=== PATIENT | female | born 1940 | race Caucasian/White ===

== ENCOUNTER 2018-04-23 03:09 | Inpatient (IN) | payer MEDICARE ==
[2018-04-23] VITALS (8 sets, daily range): BP systolic 131–147; BP diastolic 60–98; PULSE 73–92; RESP 15–20; TEMP 97.2–98.1; O2SAT 94–98
[~2018-04-23] VITALS: Ht 170.2 cm; Wt 93.0 kg
[2018-04-23] MEDS ORDERED: GLIP5TAB8 PO (03:24)
[2018-04-23] MEDS ORDERED: METF500T PO (03:24)
[2018-04-23] MEDS ORDERED: COUM1TAB PO (03:24)
[2018-04-23] MEDS ORDERED: COUM4TAB PO (03:24)
[2018-04-23] MEDS ORDERED: SYNT88TA PO (03:24)
[2018-04-23] MEDS ORDERED: METO50TA PO (03:24)
[2018-04-23] MEDS ORDERED: ATOR10TA15 PO (03:25)
[2018-04-23] MEDS ORDERED: POTA8CAP PO (03:26)
[2018-04-23] MEDS ORDERED: FURO20TA PO (03:26)
[2018-04-23] MEDS ORDERED: NITROGLYCERIN 2% OINT 1 GM PACKET TOPICAL ONE (03:45)
[2018-04-23] MEDS ORDERED: FUROSEMIDE 100 MG/10 ML VIAL IVP ONE (03:45)
--- NOTE | 2018-04-23 03:47 | PD ---
HPI Chief Complaint: Respiratory Symptoms Time Seen by Provider: 03:40 Travel History International Travel<30 days: No Contact w/Intl Traveler<30days: No Traveled to known affect area: No History of Present Illness HPI Patient comes in complaining of progressively worsening shortness of breath over the last 3 days, not associated with any cough fever or runny nose or sore throat. However the patient has no some noted pitting edema to her lower extremities as well as worsening shortness of breath with laying flat on her back or with activity PCP IS DR TONY HILLS Residential Monitor is Dr. ALONSO States allergy to codeine Past medical history significant for congestive heart failure, ablation, valve replacement, CABG, hypercholesteremia, atrial fibrillation, hypertension, diabetes, PFSH Past Medical History Atrial Fibrillation: Yes Cancer: Yes (BREAST RT SIDE) High Cholesterol: Yes Congestive Heart Failure: Yes Diabetes: Yes Patient Takes Glucophage: Yes (04/21/18) Hypertension: Yes Past Surgical History Cardiac Surgery: Yes (ABLATION, VALVE REPLACEMENT) Coronary Artery Bypass Graft: Yes Other Surgery: Yes (LUMPECTOMY RT SIDE) Social History Alcohol Use: No Tobacco Use: No Substance Use: No Allergies-Medications (Allergen,Severity, Reaction): Coded Allergies: codeine (Verified Allergy, Unknown, 04/23/18) Reported Meds & Prescriptions Reported Meds & Active Scripts Active Reported Potassium Chloride ER (Potassium Chloride) 8 Meq Cap 8 Meq PO DAILY Furosemide 20 Mg Tab 20 Mg PO DAILY Atorvastatin (Atorvastatin Calcium) 10 Mg Tab 10 Mg PO HS Metoprolol Tartrate 50 Mg Tab 50 Mg PO DAILY Coumadin (Warfarin) 4 Mg Tab 4 Mg PO DAILY Synthroid (Levothyroxine Sodium) 88 Mcg Tab 88 Mcg PO DAILY Glipizide 5 Mg Tab 5 Mg PO DAILY Take 30 minutes before a meal Metformin (Metformin HCl) 500 Mg Tab 500 Mg PO BIDPC Review of Systems General / Constitutional: No: Fever Eyes: No: Visual changes HENT: No: Headaches Cardiovascular: Positive: Palpitations, Irregular Rhythm Respiratory: Positive: Shortness of Breath, Orthopnea Gastrointestinal: No: Abdominal Pain Genitourinary: No: Dysuria Musculoskeletal: No: Pain Skin: No Rash Neurologic: No: Weakness Psychiatric: No: Depression Endocrine: No: Polydipsia Hematologic/Lymphatic: No: Easy Bruising Physical Exam Narrative GENERAL: SKIN: Warm and dry. HEAD: Atraumatic. Normocephalic. EYES: Pupils equal and round. No scleral icterus. No injection or drainage. ENT: No nasal bleeding or discharge. Mucous membranes pink and moist. NECK: Trachea midline. No JVD. CARDIOVASCULAR: IRREGULARLY IRREGULAR RHYTHM, NORMAL RATE RESPIRATORY: No accessory muscle use. BIBASILAR CRACKLES GASTROINTESTINAL: Abdomen soft, non-tender, nondistended. Hepatic and splenic margins not palpable. MUSCULOSKELETAL: Extremities without clubbing, cyanosis, 3+ PITTING BLE edema. No obvious deformities. NEUROLOGICAL: Awake and alert. No obvious cranial nerve deficits. Motor grossly within normal limits. Five out of 5 muscle strength in the arms and legs. Normal speech. PSYCHIATRIC: Appropriate mood and affect; insight and judgment normal. Data Data Last Documented VS Vital Signs Date Time Temp Pulse Resp B/P (MAP) Pulse Ox O2 Delivery O2 Flow Rate FiO2 04/23/18 03:26 98.1 92 18 132/96 (108) 97 Room Air 04/23/18 03:15 2.00 Orders Orders Complete Blood Count With Diff (04/23/18 03:40) Comprehensive Metabolic Panel (04/23/18 03:40) B-Type Natriuretic Peptide (04/23/18 03:40) Act Partial Throm Time (Ptt) (04/23/18 03:40) Prothrombin Time / Inr (Pt) (04/23/18 03:40) Ckmb (Isoenzyme) Profile (04/23/18 03:40) Troponin I (04/23/18 03:40) Iv Access Insert/Monitor (04/23/18 03:40) Electrocardiogram (04/23/18 03:40) Ecg Monitoring (04/23/18 03:40) Oximetry (04/23/18 03:40) Chest, Single Ap (04/23/18 03:40) Furosemide Inj (Lasix Inj) (04/23/18 03:45) Nitroglycerin 2% Oint (Nitroglycerin 2% (04/23/18 03:45) Labs Laboratory Tests Test 04/23/18 03:48 White Blood Count 6.7 TH/MM3 Red Blood Count 3.52 MIL/MM3 Hemoglobin 10.5 GM/DL Hematocrit 31.2 % Mean Corpuscular Volume 88.6 FL Mean Corpuscular Hemoglobin 29.7 PG Mean Corpuscular Hemoglobin Concent 33.5 % Red Cell Distribution Width 17.1 % Platelet Count 272 TH/MM3 Mean Platelet Volume 8.4 FL Neutrophils (%) (Auto) 62.6 % Lymphocytes (%) (Auto) 22.7 % Monocytes (%) (Auto) 10.6 % Eosinophils (%) (Auto) 3.3 % Basophils (%) (Auto) 0.8 % Neutrophils # (Auto) 4.2 TH/MM3 Lymphocytes # (Auto) 1.5 TH/MM3 Monocytes # (Auto) 0.7 TH/MM3 Eosinophils # (Auto) 0.2 TH/MM3 Basophils # (Auto) 0.1 TH/MM3 CBC Comment DIFF FINAL Differential Comment Prothrombin Time 17.5 SEC Prothromb Time International Ratio 1.7 RATIO Activated Partial Thromboplast Time 26.6 SEC Blood Urea Nitrogen 37 MG/DL Creatinine 1.90 MG/DL Random Glucose 188 MG/DL Total Protein 7.1 GM/DL Albumin 3.1 GM/DL Calcium Level 8.6 MG/DL Alkaline Phosphatase 158 U/L Aspartate Amino Transf (AST/SGOT) 40 U/L Alanine Aminotransferase (ALT/SGPT) 36 U/L Total Bilirubin 0.5 MG/DL Sodium Level 140 MEQ/L Potassium Level 4.5 MEQ/L Chloride Level 109 MEQ/L Carbon Dioxide Level 22.7 MEQ/L Anion Gap 8 MEQ/L Estimat Glomerular Filtration Rate 26 ML/MIN Total Creatine Kinase 54 U/L Troponin I LESS THAN 0.02 NG/ML B-Type Natriuretic Peptide 429 PG/ML MDM Medical Decision Making Medical Screen Exam Complete: Yes Emergency Medical Condition: Yes Medical Record Reviewed: Yes Interpretation(s) EKG shows atrial fibrillation with PVCs, around 90 bpm, LVH, no evidence of any ST elevation MN pattern, nonspecific T-wave abnormalities, negative SGARBOSSA'S criteria Differential Diagnosis Pneumonia versus CHF versus pleural effusion versus STEMI versus non-STEMI Narrative Course CBC shows no leukocytosis, no left shift, mild anemia of 10/31, and platelet counts were within normal limits Patient is adequately anticoagulated with an INR 1.7 Patient's electrolytes are within normal limits with the exception of GFR of 26 creatinine 1.9 and a glucose of 188. Beta natruretic peptide is 429 which is elevated consistent with CHF, first set of cardiac enzymes is negative Chest x-ray read by radiologist as mild consolidation and small pleural effusion at the left lung base Diagnosis Primary Impression: CHF exacerbation Additional Impression: Rule out pneumonia left lower lobe Admitting Information Admitting Physician Requests: Observation Danie Chamberlain MD April 23, 2018 03:47
[2018-04-23 04:14] LABS: AUTOMATED NEUTROPHIL # 4.2 TH/MM3 (1.8-7.7); BASOPHIL # 0.1 TH/MM3 (0-0.2); BASOPHIL % 0.8 % (0.0-2.0); EOSINOPHIL # 0.2 TH/MM3 (0-0.4); EOSINOPHIL % 3.3 % (0.0-4.0); HEMATOCRIT 31.2 % (35.0-46.0); HEMOGLOBIN 10.5 GM/DL (11.6-15.3); LYMPH % 22.7 % (9.0-44.0); LYMPHOCYTE # 1.5 TH/MM3 (1.0-4.8); MEAN CELL VOLUME 88.6 FL (80.0-100.0); MEAN CORPUSCULAR HEMOGLOBIN 29.7 PG (27.0-34.0); MEAN CORPUSCULAR HGB CONC 33.5 % (32.0-36.0); MEAN PLATELET VOLUME 8.4 FL (7.0-11.0); MONO % 10.6 % (0.0-8.0); MONOCYTE # 0.7 TH/MM3 (0-0.9); NEUT % 62.6 % (16.0-70.0); PLATELET COUNT 272 TH/MM3 (150-450); RED BLOOD COUNT 3.52 MIL/MM3 (4.00-5.30); RED CELL DISTRIBUTION WIDTH 17.1 % (11.6-17.2); WHITE BLOOD COUNT 6.7 TH/MM3 (4.0-11.0)
[2018-04-23 04:24] LABS: ALT (GPT) 36 U/L (10-53)
[2018-04-23 04:29] LABS: ALBUMIN 3.1 GM/DL (3.4-5.0); ALKALINE PHOSPHATASE 158 U/L (45-117); AST (GOT) 40 U/L (15-37); BICARBONATE 22.7 MEQ/L (21.0-32.0); BLOOD UREA NITROGEN 37 MG/DL (7-18); CALCIUM 8.6 MG/DL (8.5-10.1); CHLORIDE 109 MEQ/L (98-107); GLOMERULAR FILTRATION RATE 26 ML/MIN (>89); GLUCOSE,RANDOM 188 MG/DL (74-106); SODIUM (NA) 140 MEQ/L (136-145); TOTAL BILIRUBIN ADULT 0.5 MG/DL (0.2-1.0); TOTAL PROTEIN 7.1 GM/DL (6.4-8.2); TROPONIN I LESS THAN 0.02 NG/ML (0.02-0.05)
--- NOTE | 2018-04-23 04:31 | RADRPT ---
EXAM DATE: 04/23/2018 4:23 AM EDT AGE/SEX: 77 years / Female INDICATIONS: Chest pain and shortness of breath. CLINICAL DATA: This is the patient's initial encounter. Patient reports that signs and symptoms have been present for 2 weeks and indicates a pain score of 3/10. MEDICAL/SURGICAL HISTORY: Congestive heart failure. CABG. COMPARISON: No prior [facility] exams available for comparison. FINDINGS: There is left base consolidation and probably a small left pleural effusion. Right lung reasonably cl ear. No pneumothorax demonstrated. Heart size within normal limits. There has been previous median sternotomy and valve replacement. CONCLUSION: Mild consolidation and small pleural effusion at the left lung base. Electronically signed by: Ceferino Millan MD 04/23/2018 4:29 AM EDT
[2018-04-23 04:41] LABS: INTERNATIONAL NORMALIZED RATIO 1.7 RATIO; PROTHROMBIN TIME - PATIENT 17.5 SEC (9.8-11.6)
[2018-04-23] MEDS ORDERED: cefTRIAXone INJ 1,000 MG in SODIUM CHLORIDE 0.9% INJ 100 ML IV ONE (05:15)
[2018-04-23] MEDS ORDERED: AZITHROMYCIN INJ 500 MG in SODIUM CHLOR 0.9% 250 ML INJ 250 ML IV ONE (05:15)
[2018-04-23] MEDS ORDERED: SODIUM CHLORIDE 0.9% FLUSH 10 ML FLUSH IV FLUSH PRN (05:30)
[2018-04-23] MEDS ORDERED: METOCLOPRAMIDE HCL 10 MG/2 ML VIAL IV PUSH PRN (05:30)
[2018-04-23] MEDS ORDERED: DEXTROSE 50% IN WATER 50 ML VIAL(D50) IV PUSH PRN (05:30)
[2018-04-23] MEDS ORDERED: BISACODYL 10 MG SUPP RECTAL PRN (05:30)
[2018-04-23] MEDS ORDERED: SENNOSIDES 8.6 MG TAB PO PRN (05:30)
[2018-04-23] MEDS ORDERED: GLUCAGON 1 MG/ML VIAL OTHER PRN (05:30)
[2018-04-23] MEDS ORDERED: ACETAMINOPHEN 325 MG TAB PO PRN (05:30)
[2018-04-23] MEDS ORDERED: MAGNESIUM HYDROXIDE SUSP 30 ML CUP PO PRN (05:30)
[2018-04-23] MEDS ORDERED: MORPHINE SULFATE 2 MG/ML SYRINGE IV PUSH PRN (05:30)
[2018-04-23] MEDS ORDERED: LACTULOSE SYRUP 20 GM/30 ML CUP PO PRN (05:30)
[2018-04-23] MEDS: METOPROLOL TARTRATE 50 MG TAB PO SCH (08:30)
[2018-04-23] MEDS: FUROSEMIDE 40 MG/4 ML VIAL IV PUSH SCH ×2 (08:31→16:17)
[2018-04-23] MEDS: DOCUSATE SODIUM 50 MG/SENNA 8.6 MG TAB PO SCH ×2 (08:31→21:00)
[2018-04-23] MEDS: SODIUM CHLORIDE 0.9% FLUSH 10 ML FLUSH IV FLUSH SCH (08:32)
[2018-04-23] MEDS: INSULIN ASPART SUPPLEMENTAL SCALE SQ SCH ×4 (08:33→21:36)
[2018-04-23] MEDS: WARFARIN SOD 4 MG TAB PO SCH ×2 (08:40→16:17)
--- NOTE | 2018-04-23 09:56 | MB ---
cc: Devang Hastings MD DATE: 04/23/2018 DATE OF CONSULTATION: 04/23/2018. SECONDS GRADER: Dr. Christopher. ATTENDING PHYSICIAN: Dr. Romero Villafana. HISTORY OF PRESENT ILLNESS: I was asked to evaluate patient with congestive heart failure. Maddy Ford is a pleasant 77-year-old woman with a past medical history significant for status post recent mitral valve repair, coronary stent placement and "hole in the heart" repair 10/20/2017 in [place], [place]. She returned from [facility] this past Tuesday. Since returning to [place], she has noted progressive increasing shortness of breath and lower extremity edema. She was not able to lie flat before having paroxysms of shortness of breath. She denies chest pain. Emergency room evaluation shows congestive heart failure. Chest x-ray shows cardiomegaly with left pleural effusion and CHF. PERTINENT LABORATORY DATA: Potassium 4.5, creatinine is 1.9. Troponin less than 0.01. BNP is 429. MEDICATIONS PRIOR TO ADMISSION: 1. Potassium 8 mEq daily. 2. Lasix 20 mg daily. 3. Atorvastatin 10 mg daily. 4. Metoprolol tartrate 50 mg daily. 5. Warfarin 4 mg daily. 6. Synthroid 88 mcg daily. 7. Glipizide 5 mg daily. 8. Metformin 500 mg bid. ALLERGIES: CODEINE. PAST MEDICAL HISTORY: As above. She has a history of atrial fibrillation, status post ablation. Status post recent mitral valve ring, coronary stent and a "hole in the heart" repair 10/20/2017. Additionally, She has history of hypercholesterolemia, hypothyroidism, diabetes mellitus. PAST SURGICAL HISTORY: As above, also status post right lumpectomy. REVIEW OF SYSTEMS: As above. A 12-point review of systems reviewed and noted. She has noted progressive lower extremity swelling, edema with increased erythema, shortness of breath with orthopnea and paroxysmal nocturnal dyspnea. PHYSICAL EXAMINATION: VITAL SIGNS: Temperature 98.1, pulse 92, blood pressure 132/96, O2 saturation 97% on 2 liters nasal cannula. GENERAL: Very pleasant, in no acute distress. HEENT: Anicteric. PERRLA. NECK: Increased JVD. Soft carotid bruits. LUNGS: With bibasilar crackles. Decreased breath sounds at the left base. HEART: Irregular rate and rhythm, 2/6 systolic murmur, left lower sternal border. ABDOMEN: Soft and nontender. EXTREMITIES: Have 3+ pitting edema up to the knees with increased erythema. LABORATORY DATA: Sodium 140, potassium 4.5, BUN 37, creatinine 1.9, calcium 8.6, troponin less than 0.02. BNP is 429, albumin is 3.1. WBC 6.7, hemoglobin is 10.5, hematocrit is 31.2, platelet count is 272,000. IMPRESSION: 1. Congestive heart failure. 2. Status post recent mitral valve ring, coronary stent and probable ASD repair in [place], [place] 10/20/2017. 3. History of atrial fibrillation, status post ablation. 4. Chronic renal insufficiency, acute renal failure. 5. Hypertension. 6. Hypercholesterolemia. 7. Diabetes mellitus. PLAN: 1. Continue IV Lasix diuresis as systolic blood pressure and creatinine tolerate. 2. Atorvastatin, warfarin has been continued. 3. Schedule echocardiogram. 4. Consider discontinuing metformin due to congestive heart failure. 5. Not able to start JEWELS inhibitors due to acute and chronic renal insufficiency. 6. Start Carvedilol 3.125 mg b.i.d. Thank you for allowing me to contribute to the patient's care. Thank you for this consultation. Devang Hastings MD NLV/TL , 09:31 AM , 09:54 AM
--- NOTE | 2018-04-23 13:17 | EKG ---
Date Performed: 04/23/2018 Time Performed: 03:20:44 PTAGE: 77 years EKG: ATRIAL FIBRILLATION WITH ABERRANT CONDUCTION OR VENTRICULAR PREMATURE COMPLEXES MARKED LEFT AXIS DEVIATION MODERATE VOLTAGE CRITERIA FOR LVH, CONSIDER NORMAL VARIANT NONSPECIFIC T-WAVE ABNORMA LITY ABNORMAL ECG Compared to PREVIOUS TRACING , there is a rhythm change from Sinus rhythm to atrial fibrillation. Blair somewhat more leftward. QRS voltage is greater. T-wave changes are new. PREVIOUS TRACIN09/28/2007 06.11 DOCTOR: Milton Mcghee Interpretating Date/Time 04/23/2018 13:16:44
--- NOTE | 2018-04-23 15:23 | HHI.HP ---
[facility] Dax Zamora MD Admission Diagnosis CHF EXACERBATION, DEBILITY Diagnoses: (1) CHF exacerbation (2) PAULINA (acute kidney injury) Chief Complaint: Dyspnea Travel History International Travel<30 Days: No Contact w/Intl Traveler <30 Da: No Traveled to Known Affected Are: No History of Present Illness 77-year-old female with a history of atrial fibrillation, CHF, CAD, type 2 diabetes presented to the ER overnight complaining of difficulty breathing. Her shortness of breath was worse with activity and while laying down to sleep. She denied any chest pain at the time. ER workup revealed elevated BNP and exam revealed evidence for fluid overload. She incidentally also had elevated creatinine level indicating renal impairment. Laboratory testing overnight showed troponins remain within normal limits. When I saw her this morning she was happy that her legs were not nearly as swollen as they were overnight. She reported that she has been urinating constantly since starting on her diuretics here. She is breathing comfortably and off of oxygen. Review of Systems Constitutional: COMPLAINS OF: Fatigue, DENIES: Fever, Weight gain, Weight loss , Chills Eyes: DENIES: Blurred vision, Diplopia, Eye inflammation, Eye pain Ears, nose, mouth, throat: DENIES: Tinnitus, Hearing loss, Vertigo, Nasal discharge Respiratory: DENIES: Apneas, Cough, Snoring, Wheezing Cardiovascular: COMPLAINS OF: Palpitations, Dyspnea on Exertion, Lower Extremity Edema, Orthopnea, DENIES: Chest pain, Syncope Gastrointestinal: DENIES: Abdominal pain, Black stools, Bloody stools, Constipation Genitourinary: DENIES: Abnormal vaginal bleeding, Dysmenorrhea, Dyspareunia Musculoskeletal: DENIES: Joint pain, Muscle aches, Stiffness Integumentary: DENIES: Abnormal pigmentation, Pruritus, Rash, Nail changes Hematologic/lymphatic: DENIES: Bruising, Lymphadenopathy Immunologic/allergic: DENIES: Eczema, Urticaria Neurologic: DENIES: Abnormal gait, Headache, Localized weakness, Paresthesias, Seizures Psychiatric: DENIES: Anxiety, Confusion, Mood changes, Depression, Hallucinations, Agitation, Suicidal Ideation Past Family Social History Past Medical History Atrial fibrillation, congestive heart failure, coronary artery disease, type 2 diabetes, dyslipidemia Past Surgical History CABG 2017, ablation 2016, lumpectomy 2005 Allergies: Coded Allergies: codeine (Verified Allergy, Unknown, 04/23/18) Family History Coronary artery disease Social History Denies any recent smoking, drinks socially approximately once per month Physical Exam Vital Signs Vital Signs Date Time Temp Pulse Resp B/P (MAP) Pulse Ox O2 Delivery O2 Flow Rate FiO2 04/23/18 12:00 97.6 73 19 140/73 (95) 97 04/23/18 08:00 97.2 91 18 137/83 (101) 94 04/23/18 06:47 97.4 79 20 139/60 (86) 98 04/23/18 06:29 04/23/18 05:24 90 16 131/98 (109) 96 Room Air 04/23/18 05:24 96 Room Air 04/23/18 03:26 98.1 92 18 132/96 (108) 97 Room Air 04/23/18 03:15 90 18 99 Nasal Cannula 2.00 04/23/18 03:11 18 98 Physical Exam GENERAL: This is a well-nourished, well-developed patient, in no apparent distress. SKIN: No rashes, ecchymoses or lesions. Cool and dry. HEAD: Atraumatic. Normocephalic. No temporal or scalp tenderness. EYES: Pupils equal round and reactive. Extraocular motions intact. No scleral icterus. No injection or drainage. ENT: Nose without bleeding, purulent drainage or septal hematoma. Throat without erythema, tonsillar hypertrophy or exudate. Uvula midline. Airway patent. NECK: Trachea midline. No JVD or lymphadenopathy. Supple, nontender, no meningeal signs. CARDIOVASCULAR: Irregularly irregular rhythm with normal rate, without murmurs or rubs. RESPIRATORY: Clear to auscultation. Breath sounds equal bilaterally. No wheezes , mild atelectatic crackles in bases. GASTROINTESTINAL: Abdomen soft, non-tender, nondistended. No hepato-splenomegaly , or palpable masses. No guarding. MUSCULOSKELETAL: Extremities with 1+ edema to mid tobin. No joint tenderness, effusion, or edema noted. No calf tenderness. Negative Homans sign bilaterally. NEUROLOGICAL: Awake and alert. Cranial nerves II through XII intact. Motor and sensory grossly within normal limits. Five out of 5 muscle strength in all muscle groups. Normal speech. Laboratory Laboratory Tests Test 04/23/18 03:48 04/23/18 13:14 White Blood Count 6.7 Red Blood Count 3.52 Hemoglobin 10.5 Hematocrit 31.2 Mean Corpuscular Volume 88.6 Mean Corpuscular Hemoglobin 29.7 Mean Corpuscular Hemoglobin Concent 33.5 Red Cell Distribution Width 17.1 Platelet Count 272 Mean Platelet Volume 8.4 Neutrophils (%) (Auto) 62.6 Lymphocytes (%) (Auto) 22.7 Monocytes (%) (Auto) 10.6 Eosinophils (%) (Auto) 3.3 Basophils (%) (Auto) 0.8 Neutrophils # (Auto) 4.2 Lymphocytes # (Auto) 1.5 Monocytes # (Auto) 0.7 Eosinophils # (Auto) 0.2 Basophils # (Auto) 0.1 CBC Comment DIFF FINAL Differential Comment Prothrombin Time 17.5 Prothromb Time International Ratio 1.7 Activated Partial Thromboplast Time 26.6 Blood Urea Nitrogen 37 Creatinine 1.90 Random Glucose 188 Total Protein 7.1 Albumin 3.1 Calcium Level 8.6 Alkaline Phosphatase 158 Aspartate Amino Transf (AST/SGOT) 40 Alanine Aminotransferase (ALT/SGPT) 36 Total Bilirubin 0.5 Sodium Level 140 Potassium Level 4.5 Chloride Level 109 Carbon Dioxide Level 22.7 Anion Gap 8 Estimat Glomerular Filtration Rate 26 Total Creatine Kinase 54 Troponin I LESS THAN 0.02 LESS THAN 0.02 B-Type Natriuretic Peptide 429 Result Diagram: 04/23/18 0348 04/23/18 0348 Caprini VTE Risk Assessment Caprini VTE Risk Assessment: Mod/High Risk (score >= 2) Caprini Risk Assessment Model Point Value = 1 Point Value = 2 Point Value = 3 Point Value = 5 Age 41-60 Minor surgery BMI > 25 kg/m2 Swollen legs Varicose veins or History of unexplained or recurrent spontaneous Oral contraceptives or hormone replacement Sepsis (< 1 month) Serious lung disease, including pneumonia (< 1 month) Abnormal pulmonary function Acute myocardial infarction Congestive heart failure (< 1 month) History of inflammatory bowel disease Medical patient at bed rest Age 61-74 Arthroscopic surgery Major open surgery (> 45 min) Laparoscopic surgery (> 45 min) Malignancy Confined to bed (> 72 hours) Immobilizing plaster cast Central venous access Age >= 75 History of VTE Family history of VTE Factor V Leiden Prothrombin [id number] Lupus anticoagulant Anticardiolipin antibodies Elevated serum homocysteine Heparin-induced thrombocytopenia Other congenital or acquired thrombophilia Stroke (< 1 month) Elective arthroplasty Hip, pelvis, or leg fracture Acute spinal cord injury (< 1 month) Prophylaxis Regimen Total Risk Factor Score Risk Level Prophylaxis Regimen 0-1 Low Early ambulation 2 Moderate Order ONE of the following: *Sequential Compression Device (SCD) *Heparin 5000 units SQ BID 3-4 Higher Order ONE of the following medications: *Heparin 5000 units SQ TID *Enoxaparin/Lovenox 40 mg SQ daily (WT < 150 kg, CrCl > 30 mL/min) *Enoxaparin/Lovenox 30 mg SQ daily (WT < 150 kg, CrCl > 10-29 mL/min) *Enoxaparin/Lovenox 30 mg SQ BID (WT < 150 kg, CrCl > 30 mL/min) AND/OR *Sequential Compression Device (SCD) 5 or more Highest Order ONE of the following medications: *Heparin 5000 units SQ TID (Preferred with Epidurals) *Enoxaparin/Lovenox 40 mg SQ daily (WT < 150 kg, CrCl > 30 mL/min) *Enoxaparin/Lovenox 30 mg SQ daily (WT < 150 kg, CrCl > 10-29 mL/min) *Enoxaparin/Lovenox 30 mg SQ BID (WT < 150 kg, CrCl > 30 mL/min) AND *Sequential Compression Device (SCD) Assessment and Plan Problem List: (1) CHF exacerbation ICD Code: I50.9 - Heart failure, unspecified (2) PAULINA (acute kidney injury) ICD Code: N17.9 - Acute kidney failure, unspecified Assessment and Plan CHF exacerbation She has responded well to IV Lasix overnight Continue with 40 mg IV of Lasix twice daily Monitor electrolyte levels with a.m. labs When fluid levels are balanced will do oxygen walk test Cardiology ordered 2D echocardiogram and started patient on carvedilol Appreciate cardiology consult Atrial fibrillation Patient has a history of atrial fibrillation, currently irregular but rate controlled Ablation was unsuccessful in 2016 Continue monitoring on telemetry Type 2 diabetes Sliding scale insulin coverage with Accu-Cheks Diabetic diet Consider stopping metformin due to risk with CHF (outpatient follow-up with primary) h/o coronary artery disease Troponins remain within normal limits, echocardiogram pending DVT prophylaxis Continue warfarin Discharge planning Patient may be appropriate for discharge in 1-2 days once fluid levels are balance Physician Certification 2 Midnight Certification Type: Admission for Inpatient Services Order for Inpatient Services The services are ordered in accordance with Medicare regulations or non- Medicare payer requirements, as applicable. In the case of services not specified as inpatient-only, they are appropriately provided as inpatient services in accordance with the 2-midnight benchmark. Estimated LOS (days): 4 days is the estimated time the patient will need to remain in the hospital, assuming treatment plan goals are met and no additional complications. Post-Hospital Plan: Home Health Denis Villafana MD April 23, 2018 15:23
[2018-04-23] MEDS: ATORVASTATIN 10 MG TAB PO SCH (21:00)
[2018-04-23] MEDS: ACETAMINOPHEN/HYDROcodone 325 MG/5 MG TAB PO PRN (23:19)
[2018-04-23 23:55] LABS: BILIRUBIN, URINE NEG (NEG); BLOOD, URINE NEG (NEG); GLUCOSE,URINE NEG (NEG); HYALINE CAST, URINE 5 /lpf (RARE); KETONE, URINE NEG (NEG); MUCUS URINE FEW /lpf (OCC); NITRITE,URINE NEG (NEG); SQUAMOUS EPITHELIAL CELL URINE 2 /hpf (0-5); URINE COLOR YELLOW (YELLW/STRAW); URINE LEUKOCYTE ESTERASE SMALL (NEG)
[2018-04-24] VITALS (7 sets, daily range): BP systolic 143–167; BP diastolic 64–96; PULSE 82–100; RESP 18–20; TEMP 97.6–98.3; O2SAT 90–99
[2018-04-24 05:01] LABS: AUTOMATED NEUTROPHIL # 2.9 TH/MM3 (1.8-7.7); BASOPHIL # 0.1 TH/MM3 (0-0.2); BASOPHIL % 1.3 % (0.0-2.0); EOSINOPHIL # 0.3 TH/MM3 (0-0.4); EOSINOPHIL % 5.7 % (0.0-4.0); HEMATOCRIT 30.7 % (35.0-46.0); HEMOGLOBIN 10.3 GM/DL (11.6-15.3); LYMPH % 30.3 % (9.0-44.0); LYMPHOCYTE # 1.6 TH/MM3 (1.0-4.8); MEAN CELL VOLUME 88.5 FL (80.0-100.0); MEAN CORPUSCULAR HEMOGLOBIN 29.7 PG (27.0-34.0); MEAN CORPUSCULAR HGB CONC 33.5 % (32.0-36.0); MEAN PLATELET VOLUME 7.6 FL (7.0-11.0); MONO % 8.9 % (0.0-8.0); MONOCYTE # 0.5 TH/MM3 (0-0.9); NEUT % 53.8 % (16.0-70.0); PLATELET COUNT 266 TH/MM3 (150-450); RED BLOOD COUNT 3.46 MIL/MM3 (4.00-5.30); RED CELL DISTRIBUTION WIDTH 16.9 % (11.6-17.2); WHITE BLOOD COUNT 5.4 TH/MM3 (4.0-11.0)
[2018-04-24 05:08] LABS: INTERNATIONAL NORMALIZED RATIO 2.2 RATIO
[2018-04-24 05:51] LABS: ALBUMIN 3.1 GM/DL (3.4-5.0); ALKALINE PHOSPHATASE 137 U/L (45-117); ALT (GPT) 31 U/L (10-53); AST (GOT) 18 U/L (15-37); BICARBONATE 25.5 MEQ/L (21.0-32.0); BLOOD UREA NITROGEN 35 MG/DL (7-18); CALCIUM 9.1 MG/DL (8.5-10.1); CHLORIDE 104 MEQ/L (98-107); CREATININE 1.39 MG/DL (0.50-1.00); GLOMERULAR FILTRATION RATE 37 ML/MIN (>89); GLUCOSE,RANDOM 164 MG/DL (74-106); SODIUM (NA) 139 MEQ/L (136-145); TOTAL BILIRUBIN ADULT 0.5 MG/DL (0.2-1.0); TOTAL PROTEIN 6.8 GM/DL (6.4-8.2)
[2018-04-24] MEDS: DOCUSATE SODIUM 50 MG/SENNA 8.6 MG TAB PO SCH ×2 (08:34→21:00)
[2018-04-24] MEDS: METOPROLOL TARTRATE 50 MG TAB PO SCH (08:34)
[2018-04-24] MEDS: FUROSEMIDE 40 MG/4 ML VIAL IV PUSH SCH ×2 (08:34→16:13)
[2018-04-24] MEDS: ACETAMINOPHEN/HYDROcodone 325 MG/5 MG TAB PO PRN (08:35)
[2018-04-24] MEDS: SODIUM CHLORIDE 0.9% FLUSH 10 ML FLUSH IV FLUSH SCH ×3 (08:36→21:41)
[2018-04-24] MEDS: INSULIN ASPART SUPPLEMENTAL SCALE SQ SCH ×4 (08:36→21:42)
--- NOTE | 2018-04-24 09:10 | PD.CARD.PN ---
Subjective Subjective Remarks FEELS BETTER, LESS SOB NO COMPLAINTS OF CHEST PAIN Objective Medications Current Medications Medications (Trade) Dose Ordered Sig/Magui Route Start Time Stop Time Status Last Admin (D50w (Vial) Inj) 50 ml UNSCH PRN IV PUSH 04/23/18 05:30 (Glucagon Inj) 1 mg UNSCH PRN OTHER 04/23/18 05:30 (NovoLOG SUPPLEMENTAL SCALE) 1 ACHS SLIDING SCALE SQ 04/23/18 08:00 04/24/18 08:36 (Lasix Inj) 40 mg BID@18 IV PUSH 04/23/18 09:00 04/24/18 08:34 (NS Flush) 2 ml UNSCH PRN IV FLUSH 04/23/18 05:30 (NS Flush) 2 ml BID IV FLUSH 04/23/18 09:00 04/24/18 08:36 (Reglan Inj) 5 mg Q6H PRN IV PUSH 04/23/18 05:30 (Tylenol) 650 mg Q6H PRN PO 04/23/18 05:30 04/23/18 21:34 ([place] 5-325 Mg) 1 tab Q4H PRN PO 04/23/18 05:30 04/24/18 08:35 (Morphine Inj) 2 mg Q3H PRN IV PUSH 04/23/18 05:30 (Angella-Colace) 1 tab BID PO 04/23/18 09:00 04/24/18 08:34 (Milk Of Magnesia Liq) 30 ml Q12H PRN PO 04/23/18 05:30 (Senokot) 17.2 mg Q12H PRN PO 04/23/18 05:30 (Dulcolax Supp) 10 mg DAILY PRN RECTAL 04/23/18 05:30 (Lactulose Liq) 30 ml DAILY PRN PO 04/23/18 05:30 (Lipitor) 10 mg HS PO 04/23/18 21:00 (Lopressor) 50 mg DAILY PO 04/23/18 09:00 04/24/18 08:34 (Coumadin) 4 mg DAILY@1600 PO 04/23/18 09:00 04/23/18 16:17 (Pepto-Bismol Liq) 15 ml PCHS PRN PO 04/23/18 15:00 Vital Signs / I&O Vital Signs Date Time Temp Pulse Resp B/P (MAP) Pulse Ox O2 Delivery O2 Flow Rate FiO2 04/24/18 04:00 97.9 100 20 143/96 (112) 95 04/24/18 00:00 98.0 92 18 145/64 (91) 96 04/23/18 20:20 97.9 90 15 139/62 (87) 94 04/23/18 16:00 98.1 75 20 147/70 (95) 95 04/23/18 12:00 97.6 73 19 140/73 (95) 97 I/O 04/23/18 04/23/18 04/23/18 04/24/18 04/24/18 04/24/18 07:00 15:00 23:00 07:00 15:00 23:00 Intake Total 100 ml 120 ml 760 ml Output Total 800 ml Balance 100 ml 120 ml -40 ml Intake Oral 120 ml 760 ml IV Total 100 ml Output Urine Total 800 ml # Voids 1 # Bowel Movements 0 Physical Exam NAD ANICTERIC INCREASED JVD, NO BRUIT BIBASILAR CRACKLES RRR, 2/6 LLSB MURMUR ABD SOFT EXTR WITH EDEMA Laboratory Laboratory Tests Test 04/23/18 13:14 04/23/18 20:30 04/23/18 23:40 04/24/18 04:45 Troponin I LESS THAN 0.02 NG/ML LESS THAN 0.02 NG/ML Urine Color YELLOW Urine Turbidity CLEAR Urine pH 5.0 Urine Specific [place] 1.014 Urine Protein TRACE mg/dL Urine Glucose (UA) NEG mg/dL Urine Ketones NEG mg/dL Urine Occult Blood NEG Urine Nitrite NEG Urine Bilirubin NEG Urine Urobilinogen LESS THAN 2.0 MG/DL Urine Leukocyte Esterase SMALL Urine RBC 1 /hpf Urine WBC 8 /hpf Urine Squamous Epithelial Cells 2 /hpf Urine Hyaline Casts 5 /lpf Urine Mucus FEW /lpf Microscopic Urinalysis Comment CULT NOT INDICATED White Blood Count 5.4 TH/MM3 Red Blood Count 3.46 MIL/MM3 Hemoglobin 10.3 GM/DL Hematocrit 30.7 % Mean Corpuscular Volume 88.5 FL Mean Corpuscular Hemoglobin 29.7 PG Mean Corpuscular Hemoglobin Concent 33.5 % Red Cell Distribution Width 16.9 % Platelet Count 266 TH/MM3 Mean Platelet Volume 7.6 FL Neutrophils (%) (Auto) 53.8 % Lymphocytes (%) (Auto) 30.3 % Monocytes (%) (Auto) 8.9 % Eosinophils (%) (Auto) 5.7 % Basophils (%) (Auto) 1.3 % Neutrophils # (Auto) 2.9 TH/MM3 Lymphocytes # (Auto) 1.6 TH/MM3 Monocytes # (Auto) 0.5 TH/MM3 Eosinophils # (Auto) 0.3 TH/MM3 Basophils # (Auto) 0.1 TH/MM3 CBC Comment DIFF FINAL Differential Comment Prothrombin Time 22.0 SEC Prothromb Time International Ratio 2.2 RATIO Blood Urea Nitrogen 35 MG/DL Creatinine 1.39 MG/DL Random Glucose 164 MG/DL Total Protein 6.8 GM/DL Albumin 3.1 GM/DL Calcium Level 9.1 MG/DL Alkaline Phosphatase 137 U/L Aspartate Amino Transf (AST/SGOT) 18 U/L Alanine Aminotransferase (ALT/SGPT) 31 U/L Total Bilirubin 0.5 MG/DL Sodium Level 139 MEQ/L Potassium Level 3.5 MEQ/L Chloride Level 104 MEQ/L Carbon Dioxide Level 25.5 MEQ/L Anion Gap 10 MEQ/L Estimat Glomerular Filtration Rate 37 ML/MIN Assessment and Plan Assessment and Plan CHF S/P MVR HTN CRI PLAN: CONTINUE NEGATIVE FLUID BALANCE CHAIR, AMBULATE TOLERATED DR. ALONSO WILL RETURN IN AM Code Status FULL Devang Hastings MD April 24, 2018 09:10
--- NOTE | 2018-04-24 13:30 | HHI.PR ---
Subjective Remarks Patient states her legs are nearing baseline in appearance. She denies any chest pain. She states that she is still short winded when getting up to go to the bathroom. Objective Vitals Vital Signs Date Time Temp Pulse Resp B/P (MAP) Pulse Ox O2 Delivery O2 Flow Rate FiO2 04/24/18 08:00 97.6 100 19 155/65 (95) 92 04/24/18 04:00 97.9 100 20 143/96 (112) 95 04/24/18 00:00 98.0 92 18 145/64 (91) 96 04/23/18 20:20 97.9 90 15 139/62 (87) 94 04/23/18 16:00 98.1 75 20 147/70 (95) 95 I/O 04/23/18 04/23/18 04/23/18 04/24/18 04/24/18 04/24/18 07:00 15:00 23:00 07:00 15:00 23:00 Intake Total 100 ml 120 ml 760 ml Output Total 800 ml Balance 100 ml 120 ml -40 ml Intake Oral 120 ml 760 ml IV Total 100 ml Output Urine Total 800 ml # Voids 1 # Bowel Movements 0 Result Diagram: 04/24/18 0445 04/24/18 0445 Objective Remarks GENERAL: Well-nourished, well-developed patient. SKIN: Warm and dry. HEAD: Normocephalic. EYES: No scleral icterus. No injection or drainage. NECK: Supple, trachea midline. No JVD or lymphadenopathy. CARDIOVASCULAR: Occasional irregularity, rate controlled, without murmurs, gallops, or rubs. RESPIRATORY: Breath sounds equal bilaterally, mild atelectasis crackles in bases.. No accessory muscle use. GASTROINTESTINAL: Abdomen soft, non-tender, nondistended. EXTREMITIES: No cyanosis, 1+ edema limited to ankle NEUROLOGICAL: Awake, alert, and oriented x 3. Non-focal. A/P Problem List: (1) CHF exacerbation ICD Code: I50.9 - Heart failure, unspecified (2) PAULINA (acute kidney injury) ICD Code: N17.9 - Acute kidney failure, unspecified Assessment and Plan CHF exacerbation Continue with 40 mg IV of Lasix twice daily Legs are improved, patient still has dyspnea on exertion 2D echocardiogram done today, results pending and started patient on carvedilol Oxygen walk test ordered for today Appreciate cardiology consult Atrial fibrillation Patient has a history of atrial fibrillation, currently irregular but rate controlled Ablation was unsuccessful in 2016 Continue monitoring on telemetry Type 2 diabetes Sliding scale insulin coverage with Accu-Cheks Diabetic diet Consider stopping metformin due to risk with CHF (outpatient follow-up with primary) h/o coronary artery disease Troponin workup was negative Echocardiogram pending Patient had 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
[2018-04-24] MEDS: WARFARIN SOD 4 MG TAB PO SCH (16:12)
--- NOTE | 2018-04-24 18:10 | ECHRPT ---
Indication: heart failure CONCLUSIONS The left ventricular systolic function is severely reduced with an estimated ejection fraction less than 20%. Normal left ventricular size. Mild concentric left ventricular hypertrophy. There is global left ventricular dysfunction. Mild thickening of the mitral valve leaflets. Trace mitral valve regurgitation. Severe mitral annular calcification. Diffuse calcification of the aortic valve. There is moderate tricuspid regurgitation. The estimated pulmonary arterial pressure is 45 mmHg. BP: 139 / 60 HR: 86 Rhythm: Atrial fibrillation MEASUREMENTS (Male / Female) Normal Values Technical Quality: 2D ECHO LV Diastolic Diameter PLAX 4.3 cm 4.2 - 5.9 / 3.9 - 5.3 cm LV Systolic Diameter PLAX 3.9 cm IVS Diastolic Thickness 1.3 cm 0.6 - 1.0 / 0.6 - 0.9 cm LVPW Diastolic Thickness 1.3 cm 0.6 - 1.0 / 0.6 - 0.9 cm LV Relative Wall Thickness 0.6 RV Internal Dim ED PLAX 2.7 cm LVOT Diameter 1.9 cm LA Systolic Diameter LX 3.6 cm 3.0 - 4.0 / 2.7 - 3.8 cm LV Ejection Fraction MOD 4C 16.3 % LV Cardiac Index MOD 4C 1111.9 cm/minm LV Ejection Fraction 4C AL 19.9 % LV Cardiac Index 4C AL 1415.4 cm/minm M-MODE Aortic Root Diameter MM 2.3 cm LA Systolic Diameter MM 3.9 cm LA Ao Ratio MM 1.7 AV Cusp Separation MM 1.9 cm DOPPLER AV Peak Velocity 157.0 cm/s AV Peak Gradient 9.9 mmHg LVOT Peak Velocity 79.5 cm/s LVOT Peak Gradient 2.5 mmHg AV Area Cont Eq pk 1.4 cm MV Area PHT 3.3 cm TR Peak Velocity 296.0 cm/s TR Peak Gradient 35.0 mmHg Right Atrial Pressure 10.0 mmHg Pulmonary Artery Systolic Pressu 45.0 mmHg Right Ventricular Systolic Press 45.0 mmHg FINDINGS LEFT VENTRICLE The left ventricular systolic function is severely reduced with an estimated ejection fraction less than 20%. Normal left ventricular size. Mild concentric left ventricular hypertrophy. There is global left ventricular dysfunction. MITRAL VALVE Mild thickening of the mitral valve leaflets. Trace mitral valve regurgitation. Severe mitral annular calcification. AORTIC VALVE Trileaflet aortic valve. Diffuse calcification of the aortic valve. TRICUSPID VALVE Structurally normal tricuspid valve. There is moderate tricuspid regurgitation. The estimated pulmonary arterial pressure is 45 mmHg. Phill Summers MD, FACC, FSCAI (Electronically Signed) Final Date:24 Apr 2018 18:09
[2018-04-24] MEDS: ATORVASTATIN 10 MG TAB PO SCH (21:00)
[2018-04-24] MEDS: BISMUTH SUBSALICYLATE 240 ML BTL PO PRN (21:41)
[2018-04-25] VITALS (16 sets, daily range): BP systolic 111–156; BP diastolic 58–79; PULSE 70–108; RESP 16–19; TEMP 97.2–98.8; O2SAT 94–99
[2018-04-25] MEDS: INSULIN ASPART SUPPLEMENTAL SCALE SQ SCH ×4 (08:00→20:26)
[2018-04-25] MEDS: DOCUSATE SODIUM 50 MG/SENNA 8.6 MG TAB PO SCH ×2 (09:00→20:26)
[2018-04-25] MEDS: SODIUM CHLORIDE 0.9% FLUSH 10 ML FLUSH IV FLUSH SCH ×4 (09:02→20:26)
[2018-04-25] MEDS: FUROSEMIDE 40 MG/4 ML VIAL IV PUSH SCH ×2 (09:02→17:32)
[2018-04-25] MEDS ORDERED: METOPROLOL TARTRATE 25 MG TAB PO ONE (09:15)
--- NOTE | 2018-04-25 10:29 | PD.CARD.PN ---
Subjective Subjective Remarks The patient states that she is less SOB compared to admission, but continues to have SOB with exertion. Per the patient, she completed 6 min walk yesterday, but SpO2 did not meet criteria for supplemental O2. She thinks she had a PFT in the past, but denies diagnosis of COPD. (Mariana Wheatley) Objective Medications Current Medications Medications (Trade) Dose Ordered Sig/Magui Route Start Time Stop Time Status Last Admin (D50w (Vial) Inj) 50 ml UNSCH PRN IV PUSH 04/23/18 05:30 (Glucagon Inj) 1 mg UNSCH PRN OTHER 04/23/18 05:30 (NovoLOG SUPPLEMENTAL SCALE) 1 ACHS SLIDING SCALE SQ 04/23/18 08:00 04/25/18 08:00 (Lasix Inj) 40 mg BID@ IV PUSH 04/23/18 09:00 04/25/18 09:02 (NS Flush) 2 ml UNSCH PRN IV FLUSH 04/23/18 05:30 (NS Flush) 2 ml BID IV FLUSH 04/23/18 09:00 04/24/18 21:41 (Reglan Inj) 5 mg Q6H PRN IV PUSH 04/23/18 05:30 (Tylenol) 650 mg Q6H PRN PO 04/23/18 05:30 04/23/18 21:34 ([place] 5-325 Mg) 1 tab Q4H PRN PO 04/23/18 05:30 04/24/18 08:35 (Morphine Inj) 2 mg Q3H PRN IV PUSH 04/23/18 05:30 (Angella-Colace) 1 tab BID PO 04/23/18 09:00 04/24/18 08:34 (Milk Of Magnesia Liq) 30 ml Q12H PRN PO 04/23/18 05:30 (Senokot) 17.2 mg Q12H PRN PO 04/23/18 05:30 (Dulcolax Supp) 10 mg DAILY PRN RECTAL 04/23/18 05:30 (Lactulose Liq) 30 ml DAILY PRN PO 04/23/18 05:30 (Lipitor) 10 mg HS PO 04/23/18 21:00 (Coumadin) 4 mg DAILY@1600 PO 04/23/18 09:00 04/24/18 16:12 (Pepto-Bismol Liq) 15 ml PCHS PRN PO 04/23/18 15:00 04/24/18 21:41 (Lopressor) 50 mg Q12HR PO 04/25/18 21:00 Vital Signs / I&O Vital Signs Date Time Temp Pulse Resp B/P (MAP) Pulse Ox O2 Delivery O2 Flow Rate FiO2 04/25/18 08:00 97.2 101 19 144/66 (92) 99 04/25/18 04:00 97.3 108 19 117/79 (92) 95 04/25/18 00:01 97.9 81 18 156/68 (97) 97 04/24/18 20:00 98.3 89 18 154/88 (110) 99 04/24/18 17:43 96 Nasal Cannula 2.00 04/24/18 16:00 97.8 82 18 167/79 (108) 95 04/24/18 12:00 98.0 85 18 144/66 (92) 90 I/O 04/24/18 04/24/18 04/24/18 04/25/18 04/25/18 04/25/18 07:00 15:00 23:00 07:00 15:00 23:00 Intake Total 700 ml 420 ml Balance 700 ml 420 ml Intake Oral 700 ml 420 ml # Voids 1 4 3 # Bowel Movements 0 Physical Exam GENERAL: Obese female, NAD SKIN: Warm and dry. HEAD: Atraumatic. Normocephalic. EYES: Pupils equal and round. No scleral icterus. No injection or drainage. ENT: No nasal bleeding or discharge. Mucous membranes pink and moist. NECK: Trachea midline. CARDIOVASCULAR: Irreg irreg rhythm, regular rate, midsternal incision. RESPIRATORY: No accessory muscle use. Clear to auscultation. Breath sounds equal bilaterally. GASTROINTESTINAL: Abdomen soft, non-tender, nondistended. MUSCULOSKELETAL: BLE edema 1+ NEUROLOGICAL: Awake and alert. No obvious cranial nerve deficits. Motor grossly within normal limits. Five out of 5 muscle strength in the arms and legs. Normal speech. PSYCHIATRIC: Appropriate mood and affect; insight and judgment normal. Imaging Last 72 hours Impressions Chest X-Ray 04/23/18 0340 Signed Impressions: CONCLUSION: Mild consolidation and small pleural effusion at the left lung base. 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 The patient has a history of CMP prior to CABG. Chronic atrial fibrillation with history of left atrial clip on warfarin Bioprosthetic MVR PFO closure PAULINA improving PLAN Records requested and received. Assessment updated based on records received. She is a full code. We will plan for lifevest prior to discharge. We will check old records. If cardiomyopathy is ongoing based on records, we will discuss AICD Change to Coreg and continue diuretic. Pending clinical course/vitals, we will plan to start Entresto. Check BMP today. Follow up limited echo in 3 months The patient was seen and evaluated by Dr Christopher who completed face to face encounter and physical exam and participated in evaluation and management. (Mariana Wheatley) Assessment and Plan The exam, history, and the medical decision-making described in the above note were completed with the assistance of the mid-level provider. I reviewed and agree with the findings presented. I attest that I had a [id number] encounter with the patient on the same day, and personally performed and documented my assessment and findings in the medical record., Very poor prognosis with significant cardiomyopathy and chf with pleural effusion. (Diego Christopher MD) Mariana Wheatley April 25, 2018 10:29 Diego Christopher MD April 25, 2018 20:41
--- NOTE | 2018-04-25 10:35 | HHI.PR ---
Subjective Remarks Denies any chest pain or palpitations. States that the breathing has gotten better. Mildly short of breath with ambulation. Objective Vitals Vital Signs Date Time Temp Pulse Resp B/P (MAP) Pulse Ox O2 Delivery O2 Flow Rate FiO2 04/25/18 08:00 97.2 101 19 144/66 (92) 99 04/25/18 04:00 97.3 108 19 117/79 (92) 95 04/25/18 00:01 97.9 81 18 156/68 (97) 97 04/24/18 20:00 98.3 89 18 154/88 (110) 99 04/24/18 17:43 96 Nasal Cannula 2.00 04/24/18 16:00 97.8 82 18 167/79 (108) 95 04/24/18 12:00 98.0 85 18 144/66 (92) 90 I/O 04/24/18 04/24/18 04/24/18 04/25/18 04/25/18 04/25/18 07:00 15:00 23:00 07:00 15:00 23:00 Intake Total 700 ml 420 ml Balance 700 ml 420 ml Intake Oral 700 ml 420 ml # Voids 1 4 3 # Bowel Movements 0 Result Diagram: 04/24/18 0445 04/24/18 0445 Objective Remarks GENERAL: This is a well-nourished, well-developed patient, in no apparent distress. CARDIOVASCULAR: Tachycardic rate and rhythm RESPIRATORY: Diminished breath sounds bilaterally in the bases GASTROINTESTINAL: Abdomen soft, non-tender, nondistended. Normal active bowel sounds MUSCULOSKELETAL: Extremities without clubbing, cyanosis, 1+ edema with venous stasis dermatitis changes bilateral lower extremities NEURO: Alert & Oriented x4 to person, place, time, situation. Moves all ext x4 A/P Problem List: (1) CHF exacerbation ICD Code: I50.9 - Heart failure, unspecified (2) PAULINA (acute kidney injury) ICD Code: N17.9 - Acute kidney failure, unspecified Assessment and Plan Acute systolic CHF exacerbation Continue with 40 mg IV of Lasix twice daily patient still has dyspnea on exertion 2D echocardiogram showed less than 20% ejection fraction, patient was on metoprolol increased to twice daily and consideration for Coreg pending Dr. Christopher's evaluation. Oxygen walk test ordered for today Appreciate cardiology consult Atrial fibrillation, persistent Patient has a history of atrial fibrillation, currently irregular with labile rate in the 108's 1 teensincrease metoprolol to twice daily extra dose metoprolol given this morning. Will transfer patient to telemetry floor [facility] Continue monitoring on telemetry Type 2 diabetes mellitus, uncontrolled and labile Sliding scale insulin coverage with Accu-Cheks Diabetic diet Consider stopping metformin due to risk with CHF (outpatient follow-up with primary) and acute kidney injury patient likely has underlying chronic kidney disease stage 3 Chronic kidney disease stage III monitor on diuretics h/o coronary artery disease Troponin workup was negative Echocardiogram EF less than 20% Patient had CABG this past year DVT prophylaxis Continue warfarin Discharge Planning Likely home with home health care when medically stable. Jaylyn Hart MD April 25, 2018 10:34
[2018-04-25 12:22] LABS: BICARBONATE 27.1 MEQ/L (21.0-32.0); CALCIUM 9.1 MG/DL (8.5-10.1); CREATININE 1.33 MG/DL (0.50-1.00)
[2018-04-25] MEDS: BISMUTH SUBSALICYLATE 240 ML BTL PO PRN (14:43)
[2018-04-25] MEDS: WARFARIN SOD 4 MG TAB PO SCH (17:50)
[2018-04-25] MEDS: ATORVASTATIN 10 MG TAB PO SCH (20:25)
[2018-04-25] MEDS: CARVEDILOL 12.5 MG TAB PO SCH (20:25)
[2018-04-25] MEDS: SACUBITRIL/VALSARTAN 24 MG-26 MG TAB PO SCH (20:25)
[2018-04-25] MEDS ORDERED: METOPROLOL TARTRATE 50 MG TAB PO SCH (21:00)
[2018-04-26] VITALS (27 sets, daily range): BP systolic 93–106; BP diastolic 50–76; PULSE 60–90; RESP 16–19; TEMP 97.5–98.3; O2SAT 94–98
[2018-04-26] MEDS: INSULIN ASPART SUPPLEMENTAL SCALE SQ SCH ×4 (08:00→20:48)
[2018-04-26] MEDS: SACUBITRIL/VALSARTAN 24 MG-26 MG TAB PO SCH ×2 (09:00→20:47)
[2018-04-26] MEDS: CARVEDILOL 12.5 MG TAB PO SCH ×2 (09:00→20:46)
[2018-04-26] MEDS: FUROSEMIDE 40 MG/4 ML VIAL IV PUSH SCH (09:00)
[2018-04-26] MEDS: DOCUSATE SODIUM 50 MG/SENNA 8.6 MG TAB PO SCH ×2 (09:00→20:47)
[2018-04-26] MEDS: SODIUM CHLORIDE 0.9% FLUSH 10 ML FLUSH IV FLUSH SCH ×2 (09:00→20:50)
[2018-04-26] MEDS: LEVOTHYROXINE SODIUM 88 MCG TAB PO SCH (09:45)
--- NOTE | 2018-04-26 09:59 | HHI.PR ---
Subjective Remarks 77-year-old female with a history of atrial fibrillation, CHF, CAD, type 2 diabetes presented to the ER overnight complaining of difficulty breathing. Her shortness of breath was worse with activity and while laying down to sleep. She denied any chest pain at the time. ER workup revealed elevated BNP and exam revealed evidence for fluid overload. She incidentally also had elevated creatinine level indicating renal impairment. Laboratory testing overnight showed troponins remain within normal limits. When I saw her this morning she was happy that her legs were not nearly as swollen as they were overnight. She reported that she has been urinating constantly since starting on her diuretics here. She is breathing comfortably and off of oxygen. 5- Patient states her legs are nearing baseline in appearance. She denies any chest pain. She states that she is still short winded when getting up to go to the bathroom. 04-25 Denies any chest pain or palpitations. States that the breathing has gotten better. Mildly short of breath with ambulation. 5-30 BREATHING A LITTLE BETTER LIVES ALONE CHECK INRS DW RN AND PT PT AND OT TO EVAL AND TREAT Patient complains of reflux/indigestion will make medications available for this Objective Vitals Vital Signs Date Time Temp Pulse Resp B/P (MAP) Pulse Ox O2 Delivery O2 Flow Rate FiO2 04/26/18 09:00 76 04/26/18 08:00 90 04/26/18 07:00 76 04/26/18 07:00 98.0 82 18 93/50 (64) 94 04/26/18 06:20 73 04/26/18 05:09 73 04/26/18 04:00 73 04/26/18 03:34 97.6 72 16 105/70 (82) 94 04/26/18 03:34 74 04/26/18 02:00 60 04/26/18 01:00 62 04/26/18 00:02 69 04/25/18 23:24 97.9 72 16 111/59 (76) 95 04/25/18 23:00 75 04/25/18 22:00 70 04/25/18 21:25 72 04/25/18 20:00 92 04/25/18 19:37 97.6 79 16 126/58 (80) 95 04/25/18 19:00 78 04/25/18 18:00 78 04/25/18 17:00 75 04/25/18 16:00 74 04/25/18 15:00 75 04/25/18 15:00 98.3 75 18 125/63 (83) 94 04/25/18 12:15 98.8 87 18 129/78 (95) 94 I/O 04/25/18 04/25/18 04/25/18 04/26/18 04/26/18 04/26/18 07:00 15:00 23:00 07:00 15:00 23:00 Intake Total 420 ml 960 ml 740 ml Balance 420 ml 960 ml 740 ml Intake Oral 420 ml 960 ml 740 ml # Voids 3 5 7 # Bowel Movements 0 Result Diagram: 04/24/18 0445 04/25/18 1120 Other Results Laboratory Tests Test 04/23/18 13:14 04/23/18 20:30 04/23/18 23:40 04/24/18 04:45 Troponin I LESS THAN 0.02 NG/ML LESS THAN 0.02 NG/ML Urine Color YELLOW Urine Turbidity CLEAR Urine pH 5.0 Urine Specific [place] 1.014 Urine Protein TRACE mg/dL Urine Glucose (UA) NEG mg/dL Urine Ketones NEG mg/dL Urine Occult Blood NEG Urine Nitrite NEG Urine Bilirubin NEG Urine Urobilinogen LESS THAN 2.0 MG/DL Urine Leukocyte Esterase SMALL Urine RBC 1 /hpf Urine WBC 8 /hpf Urine Squamous Epithelial Cells 2 /hpf Urine Hyaline Casts 5 /lpf Urine Mucus FEW /lpf Microscopic Urinalysis Comment CULT NOT INDICATED White Blood Count 5.4 TH/MM3 Red Blood Count 3.46 MIL/MM3 Hemoglobin 10.3 GM/DL Hematocrit 30.7 % Mean Corpuscular Volume 88.5 FL Mean Corpuscular Hemoglobin 29.7 PG Mean Corpuscular Hemoglobin Concent 33.5 % Red Cell Distribution Width 16.9 % Platelet Count 266 TH/MM3 Mean Platelet Volume 7.6 FL Neutrophils (%) (Auto) 53.8 % Lymphocytes (%) (Auto) 30.3 % Monocytes (%) (Auto) 8.9 % Eosinophils (%) (Auto) 5.7 % Basophils (%) (Auto) 1.3 % Neutrophils # (Auto) 2.9 TH/MM3 Lymphocytes # (Auto) 1.6 TH/MM3 Monocytes # (Auto) 0.5 TH/MM3 Eosinophils # (Auto) 0.3 TH/MM3 Basophils # (Auto) 0.1 TH/MM3 CBC Comment DIFF FINAL Differential Comment Prothrombin Time 22.0 SEC Prothromb Time International Ratio 2.2 RATIO Blood Urea Nitrogen 35 MG/DL Creatinine 1.39 MG/DL Random Glucose 164 MG/DL Total Protein 6.8 GM/DL Albumin 3.1 GM/DL Calcium Level 9.1 MG/DL Alkaline Phosphatase 137 U/L Aspartate Amino Transf (AST/SGOT) 18 U/L Alanine Aminotransferase (ALT/SGPT) 31 U/L Total Bilirubin 0.5 MG/DL Sodium Level 139 MEQ/L Potassium Level 3.5 MEQ/L Chloride Level 104 MEQ/L Carbon Dioxide Level 25.5 MEQ/L Anion Gap 10 MEQ/L Estimat Glomerular Filtration Rate 37 ML/MIN Test 04/25/18 11:20 Blood Urea Nitrogen 29 MG/DL Creatinine 1.33 MG/DL Random Glucose 226 MG/DL Calcium Level 9.1 MG/DL Sodium Level 138 MEQ/L Potassium Level 3.6 MEQ/L Chloride Level 103 MEQ/L Carbon Dioxide Level 27.1 MEQ/L Anion Gap 8 MEQ/L Estimat Glomerular Filtration Rate 39 ML/MIN Imaging Last Impressions Chest X-Ray 04/23/18 0340 Signed Impressions: CONCLUSION: Mild consolidation and small pleural effusion at the left lung base. Objective Remarks GENERAL: Awake alert and oriented 3 talkative and cooperative SKIN: Warm and dry. Dry skin bilateral lower extremities HEAD: Atraumatic. Normocephalic. EYES: Pupils equal and round. No scleral icterus. No injection or drainage. Extraocular muscles intact ENT: No nasal bleeding or discharge. Mucous membranes pink and moist. Tongue is midline NECK: Trachea midline. No JVD. Supple CARDIOVASCULAR: IRRegular rate and rhythm. S1-S2 no S3 or S4 RESPIRATORY: No accessory muscle use. Breath sounds equal bilaterally. Decreased breath sounds bilaterally GASTROINTESTINAL: Abdomen soft, non-tender, nondistended. Hepatic and splenic margins not palpable. Obese MUSCULOSKELETAL: Extremities without clubbing, cyanosis No obvious deformities. +1 lower extremity edema NEUROLOGICAL: Awake and alert. No obvious cranial nerve deficits. Motor grossly within normal limits. 4 out of 5 muscle strength in the arms and legs. Normal speech. PSYCHIATRIC: Appropriate mood and affect; insight and judgment normal. Medications and IVs Current Medications Furosemide (Lasix Inj) 80 mg ONCE ONCE IVP Last administered on 04/23/18at 03: 55; Start 04/23/18 at 03:45; Stop 04/23/18 at 03:46; Status DC Nitroglycerin (Nitroglycerin 2% Oint) 0.5 inch ONCE ONCE TOPICAL Last administered on 04/23/18at 03:55; Start 04/23/18 at 03:45; Stop 04/23/18 at 03:46 ; Status DC Ceftriaxone Sodium 1000 mg/ Sodium Chloride 100 ml @ 200 mls/hr ONCE ONCE IV Last administered on 04/23/18at 05:21; Start 04/23/18 at 05:15; Stop 04/23/18 at 05:44; Status DC Azithromycin 500 mg/Sodium Chloride 250 ml @ 250 mls/hr ONCE ONCE IV Last administered on 04/23/18at 05:39; Start 04/23/18 at 05:15; Stop 04/23/18 at 06:14 ; Status DC Dextrose (D50w (Vial) Inj) 50 ml UNSCH PRN IV PUSH HYPOGLYCEMIA-SEE COMMENTS; Start 04/23/18 at 05:30 Glucagon (Glucagon Inj) 1 mg UNSCH PRN OTHER HYPOGLYCEMIA-SEE COMMENTS; Start 04/23/18 at 05:30 Insulin Aspart (NovoLOG SUPPLEMENTAL SCALE) 1 ACHS SLIDING SCALE SQ Last administered on 04/25/18at 20:26; Start 04/23/18 at 08:00 Furosemide (Lasix Inj) 40 mg BID@09,18 IV PUSH Last administered on 04/25/18at 17:32; Start 04/23/18 at 09:00 Sodium Chloride (NS Flush) 2 ml UNSCH PRN IV FLUSH FLUSH AFTER USING IV ACCESS ; Start 04/23/18 at 05:30 Sodium Chloride (NS Flush) 2 ml BID IV FLUSH Last administered on 04/25/18at 20: 26; Start 04/23/18 at 09:00 Metoclopramide HCl (Reglan Inj) 5 mg Q6H PRN IV PUSH NAUSEA OR VOMITING; Start 04/23/18 at 05:30 Acetaminophen (Tylenol) 650 mg Q6H PRN PO FEVER/PAIN SCALE 1 TO 2 Last administered on 04/23/18at 21:34; Start 04/23/18 at 05:30 Acetaminophen/ Hydrocodone Bitart ([place] 5-325 Mg) 1 tab Q4H PRN PO PAIN SCALE 3 TO 5 Last administered on 04/24/18at 08:35; Start 04/23/18 at 05:30 Morphine Sulfate (Morphine Inj) 2 mg Q3H PRN IV PUSH Pain 6-10; Start 04/23/18 at 05:30 Senna/Docusate Sodium (Angella-Colace) 1 tab BID PO Last administered on at 08:34; Start 04/23/18 at 09:00 Magnesium Hydroxide (Milk Of Magnesia Liq) 30 ml Q12H PRN PO Mild constipation ; Start 04/23/18 at 05:30 Sennosides (Senokot) 17.2 mg Q12H PRN PO Moderate constipation; Start 04/23/18 at 05:30 Bisacodyl (Dulcolax Supp) 10 mg DAILY PRN RECTAL SEVERE CONSITIPATION; Start at 05:30 Lactulose (Lactulose Liq) 30 ml DAILY PRN PO SEVERE CONSITIPATION; Start at 05:30 Atorvastatin Calcium (Lipitor) 10 mg HS PO Last administered on 04/25/18at 20:25 ; Start 04/23/18 at 21:00 Metoprolol Tartrate (Lopressor) 50 mg DAILY PO Last administered on 04/24/18at 08:34; Start 04/23/18 at 09:00; Stop 04/25/18 at 09:08; Status DC Warfarin Sodium (Coumadin) 4 mg DAILY@1600 PO Last administered on 04/25/18at 17 :50; Start 04/23/18 at 09:00 Patient Medication Teaching (Coumadin Booklet) 1 ONCE ONCE .XX ; Start at 05:45; Stop 04/23/18 at 05:46; Status DC Bismuth Subsalicylate (Pepto-Bismol Liq) 15 ml PCHS PRN PO gas pain or dyspepsia Last administered on 04/25/18at 14:43; Start 04/23/18 at 15:00 Metoprolol Tartrate (Lopressor) 25 mg ONCE ONCE PO Last administered on at 10:11; Start 04/25/18 at 09:15; Stop 04/25/18 at 09:16; Status DC Metoprolol Tartrate (Lopressor) 50 mg Q12HR PO ; Start 04/25/18 at 21:00; Stop 04/25/18 at 21:00; Status DC Carvedilol (Coreg) 25 mg Q12HR PO Last administered on 04/25/18at 20:25; Start 04/25/18 at 21:00 Sacubitril/ Valsartan (Entresto 24-26 Mg) 1 tab BID PO Last administered on at 20:25; Start 04/25/18 at 21:00 Levothyroxine Sodium (Synthroid) 88 mcg DAILY@0600 PO ; Start 04/26/18 at 09:45 A/P Problem List: (1) CHF exacerbation ICD Code: I50.9 - Heart failure, unspecified (2) PAULINA (acute kidney injury) ICD Code: N17.9 - Acute kidney failure, unspecified Assessment and Plan Acute systolic CHF exacerbation Continue with 40 mg IV of Lasix twice daily patient still has dyspnea on exertion 2D echocardiogram showed less than 20% ejection fraction, patient was on metoprolol increased to twice daily and consideration for Coreg pending Dr. Christopher's evaluation. Oxygen walk test ordered for today Appreciate cardiology consult Atrial fibrillation, persistent Patient has a history of atrial fibrillation, currently irregular with labile rate in the 108's increase metoprolol to twice daily extra dose metoprolol given this morning. Will transfer patient to telemetry floor [facility] Continue monitoring on telemetry Type 2 diabetes mellitus, uncontrolled and labile Sliding scale insulin coverage with Accu-Cheks Diabetic diet Consider stopping metformin due to risk with CHF (outpatient follow-up with primary) and acute kidney injury patient likely has underlying chronic kidney disease stage 3 Chronic kidney disease stage III monitor on diuretics h/o coronary artery disease Troponin workup was negative Echocardiogram EF less than 20% Patient had CABG this past year DVT prophylaxis Continue warfarin Reflux/indigestion medications written for for this Discussed with RN and patient Discharge Planning Increase activity Consult physical therapy and occupational Андрей Deleon DO April 26, 2018 09:59
[2018-04-26] MEDS: PANTOPRAZOLE SOD 40 MG DELAYED RELEASE TAB PO SCH (10:00)
[2018-04-26] MEDS ORDERED: CALCIUM CARBONATE 500 MG CHEWABLE TAB CHEW PRN (10:00)
[2018-04-26] MEDS ORDERED: ALUMINUM/MAGNESIUM/SIMETH 30 ML CUP PO PRN (10:00)
--- NOTE | 2018-04-26 10:00 | HHI.FF ---
Face to Face Verification Diagnosis: (1) PAULINA (acute kidney injury) (2) CHF exacerbation Physical Therapy Order: Evaluate and Treat, Improve ambulation, Strength and gait training Occupational Therapy Order: Evaluate and Treat, Gross motor coordination, Fine motor coordination Home Health Nursing Order: Medical education Signs/symptoms of disease process CHF education Nursing assessment with vital signs Home Health Aide Order: To Assist In: Bathing and personal care, personal lines appraiser and meal prep I have seen patient Maddy Ford on 04/26/18. My clinical findings support the need for the requested home health care services because: Ltd mobility - disease progression Patient has SOB Med compliance is questionable I certify that my clinical findings support that this patient is homebound because: Impaired cognitive ability/safety Poor cardiac reserve Андрей Deleon DO April 26, 2018 09:59
[2018-04-26 11:13] LABS: INTERNATIONAL NORMALIZED RATIO 2.5 RATIO; PROTHROMBIN TIME - PATIENT 25.3 SEC (9.8-11.6)
--- NOTE | 2018-04-26 11:52 | RADRPT ---
EXAM DATE: 04/26/2018 11:28 AM EDT AGE/SEX: 77 years / Female INDICATIONS: Difficulty breathing. Pleural effusion per order. CLINICAL DATA: This is the patient's initial encounter. Patient reports that signs and symptoms have been present for 3 days and indicates a pain score of 0/10. MEDICAL/SURGICAL HISTORY: . Congestive heart failure. . CABG. COMPARISON: [facility] – [place], CHEST SINGLE AP, 04/23/2018. . FINDINGS: A single AP erect portable view of the chest was obtained and again demonstrates the patient is statu s post median sternotomy. An artificial valve prosthesis is again noted. The small to moderate left e ffusion is unchanged. The right lung is clear. The heart size remains at the upper limits of normal w ith no perihilar edema. Patchy opacity remains the left lung base. CONCLUSION: No significant change. Patchy opacity at the left lung base with small to moderate effusion again not ed. Electronically signed by: Selvin Fried MD 04/26/2018 11:51 AM EDT
--- NOTE | 2018-04-26 14:24 | PD.CARD.PN ---
Subjective Subjective Remarks The patient is less SOB today. SpO2 > 90% during 6 minute walk. Complains of chronic GERD. Does not increase with exertion. No palpitations. No VT on monitor. Pending LifeVest Objective Medications Current Medications Medications (Trade) Dose Ordered Sig/Magui Route Start Time Stop Time Status Last Admin (D50w (Vial) Inj) 50 ml UNSCH PRN IV PUSH 04/23/18 05:30 (Glucagon Inj) 1 mg UNSCH PRN OTHER 04/23/18 05:30 (NovoLOG SUPPLEMENTAL SCALE) 1 ACHS SLIDING SCALE SQ 04/23/18 08:00 04/26/18 12:00 (Lasix Inj) 40 mg BID@ IV PUSH 04/23/18 09:00 04/26/18 09:00 (NS Flush) 2 ml UNSCH PRN IV FLUSH 04/23/18 05:30 (NS Flush) 2 ml BID IV FLUSH 04/23/18 09:00 04/26/18 09:00 (Reglan Inj) 5 mg Q6H PRN IV PUSH 04/23/18 05:30 (Tylenol) 650 mg Q6H PRN PO 04/23/18 05:30 04/23/18 21:34 ([place] 5-325 Mg) 1 tab Q4H PRN PO 04/23/18 05:30 04/24/18 08:35 (Morphine Inj) 2 mg Q3H PRN IV PUSH 04/23/18 05:30 (Angella-Colace) 1 tab BID PO 04/23/18 09:00 04/26/18 09:00 (Milk Of Magnesia Liq) 30 ml Q12H PRN PO 04/23/18 05:30 (Senokot) 17.2 mg Q12H PRN PO 04/23/18 05:30 (Dulcolax Supp) 10 mg DAILY PRN RECTAL 04/23/18 05:30 (Lactulose Liq) 30 ml DAILY PRN PO 04/23/18 05:30 (Lipitor) 10 mg HS PO 04/23/18 21:00 04/25/18 20:25 (Coumadin) 4 mg DAILY@1600 PO 04/23/18 09:00 04/25/18 17:50 (Pepto-Bismol Liq) 15 ml PCHS PRN PO 04/23/18 15:00 04/25/18 14:43 (Coreg) 25 mg Q12HR PO 04/25/18 21:00 04/26/18 09:00 (Entresto 24-26 Mg) 1 tab BID PO 04/25/18 21:00 04/26/18 09:00 (Synthroid) 88 mcg DAILY@0600 PO 04/26/18 09:45 (Mag-Al Plus Susp Liq) 30 ml Q6H PRN PO 04/26/18 10:00 (Tums Chew) 500 mg Q6H PRN CHEW 04/26/18 10:00 (Protonix) 40 mg DAILY PO 04/26/18 10:00 04/26/18 10:00 Vital Signs / I&O Vital Signs Date Time Temp Pulse Resp B/P (MAP) Pulse Ox O2 Delivery O2 Flow Rate FiO2 04/26/18 13:00 76 04/26/18 12:00 74 04/26/18 12:00 98.0 81 18 97/56 (70) 94 04/26/18 11:00 76 04/26/18 10:15 90 04/26/18 09:00 76 04/26/18 08:00 90 04/26/18 07:00 76 04/26/18 07:00 98.0 82 18 93/50 (64) 94 04/26/18 06:20 73 04/26/18 05:09 73 04/26/18 04:00 73 04/26/18 03:34 97.6 72 16 105/70 (82) 94 04/26/18 03:34 74 04/26/18 02:00 60 04/26/18 01:00 62 04/26/18 00:02 69 04/25/18 23:24 97.9 72 16 111/59 (76) 95 04/25/18 23:00 75 04/25/18 22:00 70 04/25/18 21:25 72 04/25/18 20:00 92 04/25/18 19:37 97.6 79 16 126/58 (80) 95 04/25/18 19:00 78 04/25/18 18:00 78 04/25/18 17:00 75 04/25/18 16:00 74 04/25/18 15:00 75 04/25/18 15:00 98.3 75 18 125/63 83 94 I/O 04/25/18 04/25/18 04/25/18 04/26/18 04/26/18 04/26/18 07:00 15:00 23:00 07:00 15:00 23:00 Intake Total 420 ml 960 ml 740 ml Balance 420 ml 960 ml 740 ml Intake Oral 420 ml 960 ml 740 ml # Voids 3 5 7 # Bowel Movements 0 Physical Exam GENERAL: Obese female, NAD SKIN: Warm and dry. HEAD: Atraumatic. Normocephalic. EYES: Pupils equal and round. No scleral icterus. No injection or drainage. ENT: No nasal bleeding or discharge. Mucous membranes pink and moist. NECK: Trachea midline. CARDIOVASCULAR: Irreg irreg rhythm, regular rate, midsternal incision scar RESPIRATORY: No accessory muscle use. Clear to auscultation. Breath sounds equal bilaterally. GASTROINTESTINAL: Abdomen soft, non-tender, nondistended. MUSCULOSKELETAL: BLE edema 1+ NEUROLOGICAL: Awake and alert. No obvious cranial nerve deficits. Motor grossly within normal limits. Five out of 5 muscle strength in the arms and legs. Normal speech. PSYCHIATRIC: Appropriate mood and affect; insight and judgment normal. Laboratory Laboratory Tests Test 04/26/18 10:50 Prothrombin Time 25.3 SEC Prothromb Time International Ratio 2.5 RATIO Imaging Last 24 hours Impressions Chest X-Ray 04/26/18 0000 Signed Impressions: CONCLUSION: No significant change. Patchy opacity at the left lung base with small to moder ate effusion again noted. 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 Based on evolution of EKG since 11/2017 , it appears the patient's grafts failed. Chronic atrial fibrillation with history of left atrial clip on warfarin Pleural effusion Bioprosthetic MVR PFO closure PAULINA improving GERD PLAN She is a full code. Lifevest ordered, waiting for fitting. Change diuretic Lasix IV ->torsemide PO Follow up BMP tomorrow Continue Entresto, Coreg, Coumadin and statin Follow up limited echo in 3 months Plan for discharge tomorrow. The patient was seen and evaluated by Dr Christopher who completed face to face encounter and physical exam and participated in evaluation and management. Mariana Wheatley April 26, 2018 14:24
[2018-04-26] MEDS: WARFARIN SOD 4 MG TAB PO SCH (16:00)
[2018-04-26] MEDS: TORSEMIDE 20 MG TAB PO SCH (17:00)
[2018-04-26] MEDS: ATORVASTATIN 10 MG TAB PO SCH (20:46)
[2018-04-27] VITALS (13 sets, daily range): BP systolic 99–101; BP diastolic 51–60; PULSE 68–84; RESP 18; TEMP 97.5–98.4; O2SAT 94–96
[2018-04-27 04:52] LABS: AUTOMATED NEUTROPHIL # 3.5 TH/MM3 (1.8-7.7); BASOPHIL % 0.4 % (0.0-2.0); EOSINOPHIL # 0.3 TH/MM3 (0-0.4); EOSINOPHIL % 5.7 % (0.0-4.0); HEMATOCRIT 32.4 % (35.0-46.0); HEMOGLOBIN 10.9 GM/DL (11.6-15.3); LYMPH % 24.9 % (9.0-44.0); LYMPHOCYTE # 1.4 TH/MM3 (1.0-4.8); MEAN CELL VOLUME 88.1 FL (80.0-100.0); MEAN CORPUSCULAR HEMOGLOBIN 29.6 PG (27.0-34.0); MEAN CORPUSCULAR HGB CONC 33.5 % (32.0-36.0); MEAN PLATELET VOLUME 7.7 FL (7.0-11.0); MONO % 8.4 % (0.0-8.0); MONOCYTE # 0.5 TH/MM3 (0-0.9); NEUT % 60.6 % (16.0-70.0); PLATELET COUNT 281 TH/MM3 (150-450); RED BLOOD COUNT 3.67 MIL/MM3 (4.00-5.30); RED CELL DISTRIBUTION WIDTH 16.4 % (11.6-17.2); WHITE BLOOD COUNT 5.7 TH/MM3 (4.0-11.0)
[2018-04-27 05:00] LABS: INTERNATIONAL NORMALIZED RATIO 2.6 RATIO; PROTHROMBIN TIME - PATIENT 25.9 SEC (9.8-11.6)
[2018-04-27 05:15] LABS: ALBUMIN 2.8 GM/DL (3.4-5.0); ALT (GPT) 23 U/L (10-53); AST (GOT) 16 U/L (15-37); BICARBONATE 26.5 MEQ/L (21.0-32.0); BLOOD UREA NITROGEN 34 MG/DL (7-18); CALCIUM 8.9 MG/DL (8.5-10.1); CHLORIDE 105 MEQ/L (98-107); CREATININE 1.44 MG/DL (0.50-1.00); GLOMERULAR FILTRATION RATE 35 ML/MIN (>89); GLUCOSE,RANDOM 171 MG/DL (74-106); MAGNESIUM 2.1 MG/DL (1.5-2.5); PHOSPHORUS 3.6 MG/DL (2.5-4.9); SODIUM (NA) 142 MEQ/L (136-145)
[2018-04-27 05:24] LABS: ALKALINE PHOSPHATASE 117 U/L (45-117); FREE T4 1.32 NG/DL (0.76-1.46); TOTAL BILIRUBIN ADULT 0.5 MG/DL (0.2-1.0); TOTAL PROTEIN 6.3 GM/DL (6.4-8.2)
[2018-04-27] MEDS: LEVOTHYROXINE SODIUM 88 MCG TAB PO SCH (06:31)
[2018-04-27] MEDS: CARVEDILOL 12.5 MG TAB PO SCH (08:01)
[2018-04-27] MEDS: SACUBITRIL/VALSARTAN 24 MG-26 MG TAB PO SCH (08:01)
[2018-04-27] MEDS: INSULIN ASPART SUPPLEMENTAL SCALE SQ SCH ×2 (08:01→11:14)
[2018-04-27] MEDS: PANTOPRAZOLE SOD 40 MG DELAYED RELEASE TAB PO SCH (08:01)
[2018-04-27] MEDS: TORSEMIDE 20 MG TAB PO SCH (08:01)
[2018-04-27] MEDS: DOCUSATE SODIUM 50 MG/SENNA 8.6 MG TAB PO SCH (08:01)
[2018-04-27] MEDS: SODIUM CHLORIDE 0.9% FLUSH 10 ML FLUSH IV FLUSH SCH (08:02)
--- NOTE | 2018-04-27 09:58 | HHI.PR ---
Subjective Remarks 77-year-old female with a history of atrial fibrillation, CHF, CAD, type 2 diabetes presented to the ER overnight complaining of difficulty breathing. Her shortness of breath was worse with activity and while laying down to sleep. She denied any chest pain at the time. ER workup revealed elevated BNP and exam revealed evidence for fluid overload. She incidentally also had elevated creatinine level indicating renal impairment. Laboratory testing overnight showed troponins remain within normal limits. When I saw her this morning she was happy that her legs were not nearly as swollen as they were overnight. She reported that she has been urinating constantly since starting on her diuretics here. She is breathing comfortably and off of oxygen. 5-28 Patient states her legs are nearing baseline in appearance. She denies any chest pain. She states that she is still short winded when getting up to go to the bathroom. 5-29 Denies any chest pain or palpitations. States that the breathing has gotten better. Mildly short of breath with ambulation. 5-30 BREATHING A LITTLE BETTER LIVES ALONE CHECK INRS DW RN AND PT PT AND OT TO EVAL AND TREAT Patient complains of reflux/indigestion will make medications available for this 5 FEELS BETTER WANTS TO GO HOME MEDS ADJUSTED BY CARDIOLOGY NO NEED FOR HOME OXYGEN MEDS ADJUSTED BY CARDIOLOGY DC TO HOME WITH [facility] Objective Vitals Vital Signs Date Time Temp Pulse Resp B/P (MAP) Pulse Ox O2 Delivery O2 Flow Rate FiO2 04/27/18 09:00 74 04/27/18 08:00 98.4 81 18 101/58 (72) 94 04/27/18 08:00 74 04/27/18 07:00 76 04/27/18 06:00 84 04/27/18 05:00 77 04/27/18 04:00 69 04/27/18 03:19 97.5 80 18 99/51 (67) 96 04/27/18 03:10 75 04/27/18 02:03 74 04/27/18 01:09 78 04/27/18 00:07 77 04/26/18 23:29 97.7 72 17 99/62 (74) 97 04/26/18 23:00 72 04/26/18 22:24 79 04/26/18 21:00 76 04/26/18 20:00 80 04/26/18 19:41 97.5 79 19 106/76 (86) 98 04/26/18 19:00 78 04/26/18 18:00 75 04/26/18 17:00 76 04/26/18 16:00 74 04/26/18 15:19 65 04/26/18 15:00 98.3 76 18 100/50 (67) 94 04/26/18 14:00 64 04/26/18 13:00 76 04/26/18 12:00 74 04/26/18 12:00 98.0 81 18 97/56 (70) 94 04/26/18 11:00 76 04/26/18 10:15 90 I/O 04/26/18 04/26/18 04/26/18 04/27/18 04/27/18 04/27/18 07:00 15:00 23:00 07:00 15:00 23:00 Intake Total 740 ml 800 ml 240 ml Output Total 300 ml Balance 740 ml 800 ml -60 ml Intake Oral 740 ml 800 ml 240 ml Output Urine Total 300 ml # Voids 7 5 3 # Bowel Movements 0 Result Diagram: 04/27/18 0327 04/27/18 0327 Other Results Laboratory Tests Test 04/25/18 11:20 04/26/18 10:50 04/27/18 03:27 Blood Urea Nitrogen 29 MG/DL 34 MG/DL Creatinine 1.33 MG/DL 1.44 MG/DL Random Glucose 226 MG/DL 171 MG/DL Calcium Level 9.1 MG/DL 8.9 MG/DL Sodium Level 138 MEQ/L 142 MEQ/L Potassium Level 3.6 MEQ/L 3.7 MEQ/L Chloride Level 103 MEQ/L 105 MEQ/L Carbon Dioxide Level 27.1 MEQ/L 26.5 MEQ/L Anion Gap 8 MEQ/L 11 MEQ/L Estimat Glomerular Filtration Rate 39 ML/MIN 35 ML/MIN Prothrombin Time 25.3 SEC 25.9 SEC Prothromb Time International Ratio 2.5 RATIO 2.6 RATIO White Blood Count 5.7 TH/MM3 Red Blood Count 3.67 MIL/MM3 Hemoglobin 10.9 GM/DL Hematocrit 32.4 % Mean Corpuscular Volume 88.1 FL Mean Corpuscular Hemoglobin 29.6 PG Mean Corpuscular Hemoglobin Concent 33.5 % Red Cell Distribution Width 16.4 % Platelet Count 281 TH/MM3 Mean Platelet Volume 7.7 FL Neutrophils (%) (Auto) 60.6 % Lymphocytes (%) (Auto) 24.9 % Monocytes (%) (Auto) 8.4 % Eosinophils (%) (Auto) 5.7 % Basophils (%) (Auto) 0.4 % Neutrophils # (Auto) 3.5 TH/MM3 Lymphocytes # (Auto) 1.4 TH/MM3 Monocytes # (Auto) 0.5 TH/MM3 Eosinophils # (Auto) 0.3 TH/MM3 Basophils # (Auto) 0.0 TH/MM3 CBC Comment DIFF FINAL Differential Comment Total Protein 6.3 GM/DL Albumin 2.8 GM/DL Phosphorus Level 3.6 MG/DL Magnesium Level 2.1 MG/DL Alkaline Phosphatase 117 U/L Aspartate Amino Transf (AST/SGOT) 16 U/L Alanine Aminotransferase (ALT/SGPT) 23 U/L Total Bilirubin 0.5 MG/DL B-Type Natriuretic Peptide 215 PG/ML Free Thyroxine 1.32 NG/DL Thyroid Stimulating Hormone 3rd Gen 10.700 uIU/ML Imaging Last Impressions Chest X-Ray 04/26/18 0000 Signed Impressions: CONCLUSION: No significant change. Patchy opacity at the left lung base with small to moder ate effusion again noted. Objective Remarks GENERAL: Awake alert and oriented 3 talkative and cooperative SKIN: Warm and dry. Dry skin bilateral lower extremities HEAD: Atraumatic. Normocephalic. EYES: Pupils equal and round. No scleral icterus. No injection or drainage. Extraocular muscles intact ENT: No nasal bleeding or discharge. Mucous membranes pink and moist. Tongue is midline NECK: Trachea midline. No JVD. Supple CARDIOVASCULAR: IRRegular rate and rhythm. S1-S2 no S3 or S4 RESPIRATORY: No accessory muscle use. Breath sounds equal bilaterally. Decreased breath sounds bilaterally GASTROINTESTINAL: Abdomen soft, non-tender, nondistended. Hepatic and splenic margins not palpable. Obese MUSCULOSKELETAL: Extremities without clubbing, cyanosis No obvious deformities. +1 lower extremity edema NEUROLOGICAL: Awake and alert. No obvious cranial nerve deficits. Motor grossly within normal limits. 4 out of 5 muscle strength in the arms and legs. Normal speech. PSYCHIATRIC: Appropriate mood and affect; insight and judgment normal. Procedures NONE Medications and IVs Current Medications Furosemide (Lasix Inj) 80 mg ONCE ONCE IVP Last administered on 04/23/18at 03: 55; Start 04/23/18 at 03:45; Stop 04/23/18 at 03:46; Status DC Nitroglycerin (Nitroglycerin 2% Oint) 0.5 inch ONCE ONCE TOPICAL Last administered on 04/23/18at 03:55; Start 04/23/18 at 03:45; Stop 04/23/18 at 03:46 ; Status DC Ceftriaxone Sodium 1000 mg/ Sodium Chloride 100 ml @ 200 mls/hr ONCE ONCE IV Last administered on 04/23/18at 05:21; Start 04/23/18 at 05:15; Stop 04/23/18 at 05:44; Status DC Azithromycin 500 mg/Sodium Chloride 250 ml @ 250 mls/hr ONCE ONCE IV Last administered on 04/23/18at 05:39; Start 04/23/18 at 05:15; Stop 04/23/18 at 06:14 ; Status DC Dextrose (D50w (Vial) Inj) 50 ml UNSCH PRN IV PUSH HYPOGLYCEMIA-SEE COMMENTS; Start 04/23/18 at 05:30 Glucagon (Glucagon Inj) 1 mg UNSCH PRN OTHER HYPOGLYCEMIA-SEE COMMENTS; Start 04/23/18 at 05:30 Insulin Aspart (NovoLOG SUPPLEMENTAL SCALE) 1 ACHS SLIDING SCALE SQ Last administered on 04/27/18at 08:01; Start 04/23/18 at 08:00 Furosemide (Lasix Inj) 40 mg BID@09,18 IV PUSH Last administered on 04/26/18at 09:00; Start 04/23/18 at 09:00; Stop 04/26/18 at 14:24; Status DC Sodium Chloride (NS Flush) 2 ml UNSCH PRN IV FLUSH FLUSH AFTER USING IV ACCESS ; Start 04/23/18 at 05:30 Sodium Chloride (NS Flush) 2 ml BID IV FLUSH Last administered on 04/27/18at 08: 02; Start 04/23/18 at 09:00 Metoclopramide HCl (Reglan Inj) 5 mg Q6H PRN IV PUSH NAUSEA OR VOMITING; Start 04/23/18 at 05:30 Acetaminophen (Tylenol) 650 mg Q6H PRN PO FEVER/PAIN SCALE 1 TO 2 Last administered on 04/23/18at 21:34; Start 04/23/18 at 05:30 Acetaminophen/ Hydrocodone Bitart ([place] 5-325 Mg) 1 tab Q4H PRN PO PAIN SCALE 3 TO 5 Last administered on 04/24/18at 08:35; Start 04/23/18 at 05:30 Morphine Sulfate (Morphine Inj) 2 mg Q3H PRN IV PUSH Pain 6-10; Start 04/23/18 at 05:30 Senna/Docusate Sodium (Angella-Colace) 1 tab BID PO Last administered on at 08:01; Start 04/23/18 at 09:00 Magnesium Hydroxide (Milk Of Magnesia Liq) 30 ml Q12H PRN PO Mild constipation ; Start 04/23/18 at 05:30 Sennosides (Senokot) 17.2 mg Q12H PRN PO Moderate constipation; Start 04/23/18 at 05:30 Bisacodyl (Dulcolax Supp) 10 mg DAILY PRN RECTAL SEVERE CONSITIPATION; Start at 05:30 Lactulose (Lactulose Liq) 30 ml DAILY PRN PO SEVERE CONSITIPATION; Start at 05:30 Atorvastatin Calcium (Lipitor) 10 mg HS PO Last administered on 04/26/18at 20:46 ; Start 04/23/18 at 21:00 Metoprolol Tartrate (Lopressor) 50 mg DAILY PO Last administered on 04/24/18at 08:34; Start 04/23/18 at 09:00; Stop 04/25/18 at 09:08; Status DC Warfarin Sodium (Coumadin) 4 mg DAILY@1600 PO Last administered on 04/26/18at 16 :00; Start 04/23/18 at 09:00 Patient Medication Teaching (Coumadin Booklet) 1 ONCE ONCE .XX ; Start at 05:45; Stop 04/23/18 at 05:46; Status DC Bismuth Subsalicylate (Pepto-Bismol Liq) 15 ml PCHS PRN PO gas pain or dyspepsia Last administered on 04/25/18at 14:43; Start 04/23/18 at 15:00 Metoprolol Tartrate (Lopressor) 25 mg ONCE ONCE PO Last administered on at 10:11; Start 04/25/18 at 09:15; Stop 04/25/18 at 09:16; Status DC Metoprolol Tartrate (Lopressor) 50 mg Q12HR PO ; Start 04/25/18 at 21:00; Stop 04/25/18 at 21:00; Status DC Carvedilol (Coreg) 25 mg Q12HR PO Last administered on 04/27/18at 08:01; Start 04/25/18 at 21:00 Sacubitril/ Valsartan (Entresto 24-26 Mg) 1 tab BID PO Last administered on at 08:01; Start 04/25/18 at 21:00 Levothyroxine Sodium (Synthroid) 88 mcg DAILY@0600 PO Last administered on 04/27at 06:31; Start 04/26/18 at 09:45 Al Hydrox/Mg Hydrox/Simethicone (Mag-Al Plus Susp Liq) 30 ml Q6H PRN PO MILD DYSPEPSIA OR HEARTBURN; Start 04/26/18 at 10:00 Calcium Carbonate (Tums Chew) 500 mg Q6H PRN CHEW SEE LABEL COMMETNS; Start at 10:00 Pantoprazole Sodium (Protonix) 40 mg DAILY PO Last administered on 04/27/18at 08 :01; Start 04/26/18 at 10:00 Torsemide (Demadex) 20 mg BID@09,18 PO Last administered on 04/27/18at 08:01; Start 04/26/18 at 17:00 A/P Problem List: (1) CHF exacerbation ICD Code: I50.9 - Heart failure, unspecified (2) PAULINA (acute kidney injury) ICD Code: N17.9 - Acute kidney failure, unspecified Assessment and Plan Acute systolic CHF exacerbation Continue with 40 mg IV of Lasix twice daily patient still has dyspnea on exertion 2D echocardiogram showed less than 20% ejection fraction, patient was on metoprolol increased to twice daily and consideration for Coreg pending Dr. Christopher's evaluation. Oxygen walk test ordered for today Appreciate cardiology consult SW[employer] DC TO HOME TODAY Atrial fibrillation, persistent Patient has a history of atrial fibrillation, currently irregular with labile rate in the 108's increase metoprolol to twice daily extra dose metoprolol given this morning. Will transfer patient to telemetry floor [facility] Continue monitoring on telemetry Type 2 diabetes mellitus, uncontrolled and labile Sliding scale insulin coverage with Accu-Cheks Diabetic diet Consider stopping metformin due to risk with CHF (outpatient follow-up with primary) and acute kidney injury patient likely has underlying chronic kidney disease stage 3 Chronic kidney disease stage III monitor on diuretics h/o coronary artery disease Troponin workup was negative Echocardiogram EF less than 20% Patient had CABG this past year DVT prophylaxis Continue warfarin Reflux/indigestion medications written for for this Discussed with RN and patient CHRONIC COUMADIN INR IS STABLE DC TO HOME WITH [facility] TODAY Discharge Planning Increase activity Consult physical therapy and occupational Андрей Deleon DO April 27, 2018 09:58
[2018-04-27] MEDS ORDERED: PERI PO (10:06)
[2018-04-27] MEDS ORDERED: CARV12.5 PO (10:06)
[2018-04-27] MEDS ORDERED: ATOR10TA15 PO (10:06)
[2018-04-27] MEDS ORDERED: TORS1TAB12 PO (10:06)
[2018-04-27] MEDS ORDERED: POTA8CAP PO (10:06)
[2018-04-27] MEDS ORDERED: LEVO100T5 PO (10:06)
[2018-04-27] MEDS ORDERED: COUM4TAB PO (10:06)
[2018-04-27] MEDS ORDERED: SACU1TAB PO (10:06)
[2018-04-27] MEDS ORDERED: GLIP5TAB8 PO (10:06)
--- NOTE | 2018-04-27 10:08 | HHI.DS ---
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 Her shortness of breath was worse with activity and while laying down to sleep. She denied any chest pain at the time. ER workup revealed elevated BNP and exam revealed evidence for fluid overload. She incidentally also had elevated creatinine level indicating renal impairment. Laboratory testing overnight showed troponins remain within normal limits. When I saw her this morning she was happy that her legs were not nearly as swollen as they were overnight. She reported that she has been urinating constantly since starting on her diuretics here. She is breathing comfortably and off of oxygen. CBC/BMP: 04/27/18 0327 04/27/18 0327 Significant Findings Laboratory Tests Test 04/25/18 11:20 04/26/18 10:50 04/27/18 03:27 Blood Urea Nitrogen 29 MG/DL (7-18) 34 MG/DL (7-18) Creatinine 1.33 MG/DL (0.50-1.00) 1.44 MG/DL (0.50-1.00) Random Glucose 226 MG/DL (74-106) 171 MG/DL (74-106) Estimat Glomerular Filtration Rate 39 ML/MIN (>89) 35 ML/MIN (>89) Prothrombin Time 25.3 SEC (9.8-11.6) 25.9 SEC (9.8-11.6) Red Blood Count 3.67 MIL/MM3 (4.00-5.30) Hemoglobin 10.9 GM/DL (11.6-15.3) Hematocrit 32.4 % (35.0-46.0) Monocytes (%) (Auto) 8.4 % (0.0-8.0) Eosinophils (%) (Auto) 5.7 % (0.0-4.0) Total Protein 6.3 GM/DL (6.4-8.2) Albumin 2.8 GM/DL (3.4-5.0) B-Type Natriuretic Peptide 215 PG/ML (0-100) Thyroid Stimulating Hormone 3rd Gen 10.700 uIU/ML (0.358-3.740) Imaging Last Impressions Chest X-Ray 04/26/18 0000 Signed Impressions: CONCLUSION: No significant change. Patchy opacity at the left lung base with small to moder ate effusion again noted. PE at Discharge GENERAL: Awake alert and oriented 3 talkative and cooperative SKIN: Warm and dry. Dry skin bilateral lower extremities HEAD: Atraumatic. Normocephalic. EYES: Pupils equal and round. No scleral icterus. No injection or drainage. Extraocular muscles intact ENT: No nasal bleeding or discharge. Mucous membranes pink and moist. Tongue is midline NECK: Trachea midline. No JVD. Supple CARDIOVASCULAR: IRRegular rate and rhythm. S1-S2 no S3 or S4 RESPIRATORY: No accessory muscle use. Breath sounds equal bilaterally. Decreased breath sounds bilaterally GASTROINTESTINAL: Abdomen soft, non-tender, nondistended. Hepatic and splenic margins not palpable. Obese MUSCULOSKELETAL: Extremities without clubbing, cyanosis No obvious deformities. +1 lower extremity edema NEUROLOGICAL: Awake and alert. No obvious cranial nerve deficits. Motor grossly within normal limits. 4 out of 5 muscle strength in the arms and legs. Normal speech. PSYCHIATRIC: Appropriate mood and affect; insight and judgment normal. Hospital Course 77-year-old female with a history of atrial fibrillation, CHF, CAD, type 2 diabetes presented to the ER overnight complaining of difficulty breathing. Her shortness of breath was worse with activity and while laying down to sleep. She denied any chest pain at the time. ER workup revealed elevated BNP and exam revealed evidence for fluid overload. She incidentally also had elevated creatinine level indicating renal impairment. Laboratory testing overnight showed troponins remain within normal limits. When I saw her this morning she was happy that her legs were not nearly as swollen as they were overnight. She reported that she has been urinating constantly since starting on her diuretics here. She is breathing comfortably and off of oxygen. 5-28 Patient states her legs are nearing baseline in appearance. She denies any chest pain. She states that she is still short winded when getting up to go to the bathroom. 5-29 Denies any chest pain or palpitations. States that the breathing has gotten better. Mildly short of breath with ambulation. 5-30 BREATHING A LITTLE BETTER LIVES ALONE CHECK INRS DW RN AND PT PT AND OT TO EVAL AND TREAT Patient complains of reflux/indigestion will make medications available for this 5-31 FEELS BETTER WANTS TO GO HOME MEDS ADJUSTED BY CARDIOLOGY NO NEED FOR HOME OXYGEN MEDS ADJUSTED BY CARDIOLOGY DC TO HOME WITH [facility] Pt Condition on Discharge: Good Discharge Disposition: Disch w/ Home Health Serv Discharge Time: > 30 minutes Discharge Instructions DIET: Follow Instructions for: Heart Healthy Diet, Diabetic Diet Speech Therapy-Diet Recommends: Regular Fluid Restrictions: 1.5 LITERS Activities you can perform: Regular-No Restrictions Follow up Referrals: Cardiology, Interventional - 1 Week with Diego Christopher MD PCP Follow-up - 3-5 Days with Dax Zamora MD New Medications: Levothyroxine (Levothyroxine) 100 Mcg Tab 100 MCG PO DAILY for Thyroid, #30 TAB 0 Refills Carvedilol (Coreg) 12.5 Mg Tab 25 MG PO Q12HR for Regulate Heart Beat, #60 TAB Sacubitril-Valsartan (Entresto) 24-26 Mg Tab 1 TAB PO BID for Blood Pressure Management, #60 TAB Sennosides-Docusate Sodium (Gnp Senna Plus 8.6-50 mg) 8.6 Mg-50 Mg Tab 1 TAB PO BID for Constipation, #60 TAB Torsemide (Demadex) 20 Mg Tab 20 MG PO BID@09,18 for Blood Pressure Management, #60 TAB Continued Medications: Atorvastatin (Atorvastatin) 10 Mg Tab 10 MG PO HS for Cholesterol Management, #30 TAB 0 Refills (This prescription has been renewed) Glipizide (Glipizide) 5 Mg Tab 5 MG PO DAILY for Blood Sugar Management, #30 TAB 0 Refills (This prescription has been renewed) Take 30 minutes before a meal Potassium Chloride ER (Potassium Chloride ER) 8 Meq Cap 8 MEQ PO DAILY for Electrolyte Replacement, #30 CAP 0 Refills (This prescription has been renewed) Warfarin (Coumadin) 4 Mg Tab 4 MG PO DAILY for Prevent Blood Clot, #30 TAB 0 Refills (This prescription has been renewed) Discontinued Medications: Furosemide (Furosemide) 20 Mg Tab 20 MG PO DAILY, #30 TAB 0 Refills Levothyroxine (Synthroid) 88 Mcg Tab 88 MCG PO DAILY for Thyroid, #30 TAB 0 Refills Metformin (Metformin) 500 Mg Tab 500 MG PO BIDPC for Blood Sugar Management, #60 TAB 0 Refills Metoprolol Tartrate (Metoprolol Tartrate) 50 Mg Tab 50 MG PO DAILY, #30 TAB 0 Refills Additional Information GOAL INR 2.0 TO 3.0 Андрей Deleon DO April 27, 2018 10:08
--- NOTE | 2018-04-27 11:36 | PD.CARD.PN ---
Subjective Subjective Remarks The patient was fit for [facility]. SOB is stable with exertion. No CP or increase edema. No major arrhythmia. (Mariana Wheatley) Objective Medications Current Medications Medications (Trade) Dose Ordered Sig/Magui Route Start Time Stop Time Status Last Admin (D50w (Vial) Inj) 50 ml UNSCH PRN IV PUSH 04/23/18 05:30 (Glucagon Inj) 1 mg UNSCH PRN OTHER 04/23/18 05:30 (NovoLOG SUPPLEMENTAL SCALE) 1 ACHS SLIDING SCALE SQ 04/23/18 08:00 04/27/18 08:01 (NS Flush) 2 ml UNSCH PRN IV FLUSH 04/23/18 05:30 (NS Flush) 2 ml BID IV FLUSH 04/23/18 09:00 04/27/18 08:02 (Reglan Inj) 5 mg Q6H PRN IV PUSH 04/23/18 05:30 (Tylenol) 650 mg Q6H PRN PO 04/23/18 05:30 04/23/18 21:34 ([place] 5-325 Mg) 1 tab Q4H PRN PO 04/23/18 05:30 04/24/18 08:35 (Morphine Inj) 2 mg Q3H PRN IV PUSH 04/23/18 05:30 (Angella-Colace) 1 tab BID PO 04/23/18 09:00 04/27/18 08:01 (Milk Of Magnesia Liq) 30 ml Q12H PRN PO 04/23/18 05:30 (Senokot) 17.2 mg Q12H PRN PO 04/23/18 05:30 (Dulcolax Supp) 10 mg DAILY PRN RECTAL 04/23/18 05:30 (Lactulose Liq) 30 ml DAILY PRN PO 04/23/18 05:30 (Lipitor) 10 mg HS PO 04/23/18 21:00 04/26/18 20:46 (Coumadin) 4 mg DAILY@1600 PO 04/23/18 09:00 04/26/18 16:00 (Pepto-Bismol Liq) 15 ml PCHS PRN PO 04/23/18 15:00 04/25/18 14:43 (Coreg) 25 mg Q12HR PO 04/25/18 21:00 5/31/18 08:01 (Entresto 24-26 Mg) 1 tab BID PO 04/25/18 21:00 04/27/18 08:01 (Synthroid) 88 mcg DAILY@0600 PO 04/26/18 09:45 04/27/18 06:31 (Mag-Al Plus Susp Liq) 30 ml Q6H PRN PO 04/26/18 10:00 (Tums Chew) 500 mg Q6H PRN CHEW 04/26/18 10:00 (Protonix) 40 mg DAILY PO 04/26/18 10:00 04/27/18 08:01 (Demadex) 20 mg BID@18 PO 04/26/18 17:00 04/27/18 08:01 Vital Signs / I&O Vital Signs Date Time Temp Pulse Resp B/P (MAP) Pulse Ox O2 Delivery O2 Flow Rate FiO2 04/27/18 10:00 68 04/27/18 09:00 74 04/27/18 08:00 98.4 81 18 101/58 (72) 94 04/27/18 08:00 74 04/27/18 07:00 76 04/27/18 06:00 84 04/27/18 05:00 77 04/27/18 04:00 69 04/27/18 03:19 97.5 80 18 99/51 (67) 96 04/27/18 03:10 75 04/27/18 02:03 74 04/27/18 01:09 78 04/27/18 00:07 77 04/26/18 23:29 97.7 72 17 99/62 (74) 97 04/26/18 23:00 72 04/26/18 22:24 79 04/26/18 21:00 76 04/26/18 20:00 80 04/26/18 19:41 97.5 79 19 106/76 (86) 98 04/26/18 19:00 78 04/26/18 18:00 75 04/26/18 17:00 76 04/26/18 16:00 74 04/26/18 15:19 65 04/26/18 15:00 98.3 76 18 100/50 (67) 94 04/26/18 14:00 64 04/26/18 13:00 76 04/26/18 12:00 74 04/26/18 12:00 98.0 81 18 97/56 (70) 94 I/O 04/26/18 04/26/18 04/26/18 04/27/18 04/27/18 04/27/18 07:00 15:00 23:00 07:00 15:00 23:00 Intake Total 740 ml 800 ml 240 ml Output Total 300 ml Balance 740 ml 800 ml -60 ml Intake Oral 740 ml 800 ml 240 ml Output Urine Total 300 ml # Voids 7 5 3 # Bowel Movements 0 Physical Exam GENERAL: Obese female, NAD SKIN: Warm and dry. HEAD: Atraumatic. Normocephalic. EYES: Pupils equal and round. No scleral icterus. No injection or drainage. ENT: No nasal bleeding or discharge. Mucous membranes pink and moist. NECK: Trachea midline. CARDIOVASCULAR: Irreg irreg rhythm, regular rate, midsternal incision scar, LIFEVEST RESPIRATORY: No accessory muscle use. Clear to auscultation. Breath sounds equal bilaterally. GASTROINTESTINAL: Abdomen soft, non-tender, nondistended. MUSCULOSKELETAL: BLE edema 1+ NEUROLOGICAL: Awake and alert. No obvious cranial nerve deficits. Motor grossly within normal limits. Five out of 5 muscle strength in the arms and legs. Normal speech. PSYCHIATRIC: Appropriate mood and affect; insight and judgment normal. Laboratory Laboratory Tests Test 04/27/18 03:27 White Blood Count 5.7 TH/MM3 Red Blood Count 3.67 MIL/MM3 Hemoglobin 10.9 GM/DL Hematocrit 32.4 % Mean Corpuscular Volume 88.1 FL Mean Corpuscular Hemoglobin 29.6 PG Mean Corpuscular Hemoglobin Concent 33.5 % Red Cell Distribution Width 16.4 % Platelet Count 281 TH/MM3 Mean Platelet Volume 7.7 FL Neutrophils (%) (Auto) 60.6 % Lymphocytes (%) (Auto) 24.9 % Monocytes (%) (Auto) 8.4 % Eosinophils (%) (Auto) 5.7 % Basophils (%) (Auto) 0.4 % Neutrophils # (Auto) 3.5 TH/MM3 Lymphocytes # (Auto) 1.4 TH/MM3 Monocytes # (Auto) 0.5 TH/MM3 Eosinophils # (Auto) 0.3 TH/MM3 Basophils # (Auto) 0.0 TH/MM3 CBC Comment DIFF FINAL Differential Comment Prothrombin Time 25.9 SEC Prothromb Time International Ratio 2.6 RATIO Blood Urea Nitrogen 34 MG/DL Creatinine 1.44 MG/DL Random Glucose 171 MG/DL Total Protein 6.3 GM/DL Albumin 2.8 GM/DL Calcium Level 8.9 MG/DL Phosphorus Level 3.6 MG/DL Magnesium Level 2.1 MG/DL Alkaline Phosphatase 117 U/L Aspartate Amino Transf (AST/SGOT) 16 U/L Alanine Aminotransferase (ALT/SGPT) 23 U/L Total Bilirubin 0.5 MG/DL Sodium Level 142 MEQ/L Potassium Level 3.7 MEQ/L Chloride Level 105 MEQ/L Carbon Dioxide Level 26.5 MEQ/L Anion Gap 11 MEQ/L Estimat Glomerular Filtration Rate 35 ML/MIN B-Type Natriuretic Peptide 215 PG/ML Free Thyroxine 1.32 NG/DL Thyroid Stimulating Hormone 3rd Gen 10.700 uIU/ML (Mariana Wheatley) Assessment and Plan Assessment and Plan Resolved acute systolic CHF exacerbation 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 Based on evolution of EKG since 11/2017 , it appears the patient's grafts failed. Chronic atrial fibrillation with history of left atrial clip on warfarin Pleural effusion Bioprosthetic MVR PFO closure PAULINA improving GERD PLAN [facility] Continue Entresto, Coreg, torsemide, Coumadin and statin Follow up limited echo in 3 months Plan for discharge tomorrow. The patient was seen and evaluated by Dr Christopher who completed face to face encounter and physical exam and participated in evaluation and management. (Mariana Wheatley) Assessment and Plan The exam, history, and the medical decision-making described in the above note were completed with the assistance of the mid-level provider. I reviewed and agree with the findings presented. I attest that I had a [id number] encounter with the patient on the same day, and personally performed and documented my assessment and findings in the medical record.Doing better, will d /c (Diego Christopher MD) Mariana Wheatley April 27, 2018 11:36 Diego Christopher MD Apr 28, 2018 14:31
--- NOTE | 2018-04-27 11:50 | OTSOAPIP ---
RECEIVED OCCUPATIONAL THERAPY ORDERS FROM DR. BEE. UPON ARRIVAL, PATIENT'S DOOR CLOSED. ONCE DOOR OPENED, PATIENT WAS FOUND FULLY DRESSED SITTING UP IN BEDSIDE CHAIR. PATIENT STATED, "I'M SORRY I WAS GETTING DRESSED." PATIENT REPORTED SHE DRESSED HERSELF INDEPENDENTLY AND IS PREPARING TO DISCHARGE HOME. DISCHARGE ORDERS ARE IN PLACE AT THIS TIME. PATIENT REPORTS SHE HAS A HIRED CAREGIVER AT HOME 5 HOURS DAILY, 5 TIMES A WEEK WHO ASSIST WITH MEAL PREPARATION, CLEANING, AND LAUNDRY. PATIENT POLITELY DECLINES OCCUPATIONAL THERAPY EVALUATION. PATIENT APPEARS TO BE DOING WELL. OT WILL NOT COMPLETE FORMAL EVALUATION PER PATIENT'S REQUEST. INTERDISCIPLINARY COMMUNICATION: REVIEWED ELECTRONIC MEDICAL RECORD Therapist: Shaylee Mccord OTR/Nikki Signature on file
--- NOTE | 2018-04-27 14:57 | EKG ---
Date Performed: 04/26/2018 Time Performed: 13:41:21 PTAGE: 77 years EKG: ATRIAL FIBRILLATION Consider inferior infarction, age indeterminate Consider anteroseptal M I, age indeterminate ABNORMAL ECG PREVIOUS TRACING : 04/23/2018 03.20 DOCTOR: Phill Summers Interpretating Date/Time 04/27/2018 14:55:21
[2018-04-27 16:11] LABS: HEMOGLOBIN A1C 8.1 % (4.3-6.0)
== END 2018-04-27 13:55 | disposition home health service (06) | DRG 291 ==
LOC: NEPE 03:09 → NEDA 05:22 → N06A 06:26 → HCPC 04-25 12:10
PROVIDERS: ADMIT Hospitalist; ATTEND Hospitalist
DX: I13.0 Hypertensive heart and chronic kidney disease with heart failure and stage 1 through stage 4 chronic kidney disease, or unspecified chronic kidney disease (principal); I50.23 Acute on chronic systolic (congestive) heart failure; N17.9 Acute kidney failure, unspecified; R06.00 Dyspnea, unspecified; E11.22 Type 2 diabetes mellitus with diabetic chronic kidney disease; E11.65 Type 2 diabetes mellitus with hyperglycemia; I48.1 Persistent atrial fibrillation; I25.5 Ischemic cardiomyopathy; I25.10 Atherosclerotic heart disease of native coronary artery without angina pectoris; N18.3 Chronic kidney disease, stage 3 (moderate); E03.9 Hypothyroidism, unspecified; I48.2 Chronic atrial fibrillation; E78.00 Pure hypercholesterolemia, unspecified; R53.81 Other malaise; K21.9 Gastro-esophageal reflux disease without esophagitis; Z87.74 Personal history of (corrected) congenital malformations of heart and circulatory system; Z88.5 Allergy status to narcotic agent; Z95.1 Presence of aortocoronary bypass graft; Z95.2 Presence of prosthetic heart valve; Z95.5 Presence of coronary angioplasty implant and graft; Z79.01 Long term (current) use of anticoagulants; Z79.84 Long term (current) use of oral hypoglycemic drugs
CPT/HCPCS: 71045; 76937; 80048; 80053; 81001; 82550; 82948; 83036; 83735; 83880; 84100; 84439; 84443; 84484; 85025; 85610; 85730; 93005; 93306; 94618; 96374; 96375; J0456; J0696; J1815; J1940; J7050